=== PATIENT | female | born 1990 | race African-American/Black ===

== ENCOUNTER 2017-07-25 14:24 | Emergency (ER) | payer SELFPAY ==
--- NOTE | 2017-07-25 16:50 | ER Document Report ---
HPI - HPI Patient complains to provider of: Low back pain Onset: Other - 3 weeks Onset/Duration: Persistent Quality of pain: Achy Pain Level: 4 Context: Patient presents complaining of low back pain for the past 3 weeks. Patient also reports intermittent urinary frequency and dysuria. Patient states she has been taking [id number] AZO to treat her symptoms. Patient denies any fever. Patient does report occasional nausea but denies any at this time. Associated Symptoms: Nausea, Other - Low back pain, urinary frequency. denies: Fever, Vomiting Exacerbated by: Movement Relieved by: Denies Similar symptoms previously: No Recently seen / treated by doctor: No - ROS ROS below otherwise negative: Yes Systems Reviewed and Negative: Yes All other systems reviewed and negative - CONSTITUTIONAL Constitutional: DENIES: Fever - NEURO Neurology: DENIES: Weakness - RESPIRATORY Respiratory: DENIES: Trouble Breathing - GASTROINTESTINAL Gastrointestinal: REPORTS: Nausea. 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 IN LAST 30 DAYS: No COUNTRY TRAVELED TO/FROM: [place] - [facility] HEENT: Atraumatic, Normocephalic - NECK Neck: Normal Inspection, Supple - RESPIRATORY Respiratory: Breath Sounds Normal, No Respiratory Distress O2 Sat by Pulse Oximetry: 100 - CARDIOVASCULAR Cardiovascular: Regular Rate, Regular Rhythm, No Murmur - GI/ABDOMEN Gastrointestinal: Abdomen Soft, Abdomen Non-Tender, No Organomegaly - BACK Back: CVA Tenderness-Right, CVA Tenderness-Left - MUSCULOSKELETAL/EXTREMETIES Musculoskeletal/Extremeties: SANDRA, FROM - NEURO Level of Consciousness: Awake, Alert, Appropriate Motor/Sensory: No Motor Deficit - DERM Integumentary: Warm, Dry, No Rash Course - Re-evaluation Re-evalutation: 07/25/17 16:49 Patient denies any concerns about any possible sexually transmitted infection 07/25/17 17:45 Offered patient STD testing, patient declines. Patient prefers to wait for culture results. Will treat patient for musculoskeletal back pain at this time. - Vital Signs Vital signs: Temp Pulse Resp BP Pulse Ox 99.4 F 78 16 115/63 100 07/25/17 14:31 07/25/17 14:31 07/25/17 14:31 07/25/17 14:31 07/25/17 14:31 - Laboratory Laboratory results interpreted by me: 07/25/17 17:45 Labs- Entire Visit 07/25/17 15:49 Urine Color YELLOW Urine Appearance CLEAR Urine pH 6.0 Ur Specific Savery 1.008 Urine Protein NEGATIVE Urine Glucose (UA) NEGATIVE Urine Ketones NEGATIVE Urine Blood NEGATIVE Urine Nitrite NEGATIVE Urine Bilirubin NEGATIVE Urine Urobilinogen NEGATIVE Ur Leukocyte Esterase NEGATIVE Urine WBC 1-5 Ur Squamous Epith Cells MODERATE Urine Bacteria 1+ Urine Ascorbic Acid NEGATIVE Urine HCG, Qual NEGATIVE Discharge - Discharge Clinical Impression: Urinary symptom or sign Low back pain Qualifiers: Chronicity: unspecified Back pain laterality: bilateral Sciatica presence: without sciatica Qualified Code(s): M54.5 - Low back pain Condition: Stable Disposition: HOME, SELF-CARE Instructions: Low Back Pain ([facility]), Muscle Relaxers ([facility]) Additional Instructions: Return immediately for any new or worsening symptoms Followup with your primary care provider, call tomorrow to make a followup appointment Urine culture is pending, we will call if you need any different treatment Prescriptions: Cyclobenzaprine HCl [Flexeril 10 Mg Tablet] 10 mg PO TID #15 tablet Naproxen [Naprosyn 250 Nmg Tablet] 1 tab PO BID #14 tablet Forms: Return to Work Referrals: [facility] [Provider Group] - Follow up as needed
[2017-07-25 17:21] LABS: APPEARANCE,URINE CLEAR; BILIRUBIN,URINE NEGATIVE (NEGATIVE); GLUCOSE, URINE NEGATIVE (NEGATIVE); KETONES,URINE NEGATIVE (NEGATIVE); LEUKOCYTE ESTERASE,URINE NEGATIVE (NEGATIVE); NITRITE,URINE NEGATIVE (NEGATIVE); PROTEIN,URINE NEGATIVE (NEGATIVE); URINE SPECIFIC GRAVITY 1.008; UROBILINOGEN,URINE NEGATIVE mg/dL (<2.0)
[2017-07-25 17:29] LABS: BACTERIA,URINE 1+ /HPF
[2017-07-25] MEDS ORDERED: CYCLOBENZAPRINE HCL 10 MG TABLET PO ONE (17:47)
[2017-07-25] MEDS ORDERED: IBUPROFEN 800 MG TABLET PO ONE (17:47)
[2017-07-25 18:09] VITALS: BP 108/89
== END 2017-07-25 18:09 | disposition home or self-care (01) ==
LOC: ER 14:24
DX: M54.5 Low back pain (principal); R11.0 Nausea; R35.0 Frequency of micturition
CPT/HCPCS: 81001; 81025; 87086; 99283

== ENCOUNTER 2017-09-16 10:38 | Emergency (ER) | payer SELFPAY ==
[2017-09-16 11:25] LABS: APPEARANCE,URINE SLIGHTLY-CLOUDY; BILIRUBIN,URINE NEGATIVE (NEGATIVE); COLOR,URINE YELLOW; GLUCOSE, URINE NEGATIVE (NEGATIVE); KETONES,URINE NEGATIVE (NEGATIVE); LEUKOCYTE ESTERASE,URINE NEGATIVE (NEGATIVE); NITRITE,URINE NEGATIVE (NEGATIVE); PROTEIN,URINE NEGATIVE (NEGATIVE); URINE SPECIFIC GRAVITY 1.018; UROBILINOGEN,URINE NEGATIVE mg/dL (<2.0)
--- NOTE | 2017-09-16 12:12 | ER Document Report ---
ED General - General Chief Complaint: Sore Throat Stated Complaint: SORE THROAT,CRAMPING Time Seen by Provider: 09/16/17 11:15 Mode of Arrival: Ambulatory Information source: Patient Notes: 26-year-old female presents with 2 separate complaints. Patient admits to intermittent cramping which she denies any vaginal bleeding or discharge. Patient notes it feels like it.. Patient also notes that she has had a tender lymph node of 1 month duration after she was seen and treated for strep pharyngitis TRAVEL OUTSIDE OF THE [place] IN LAST 30 DAYS: No COUNTRY TRAVELED TO/FROM: [facility] - [facility] Onset: Last week Onset/Duration: Intermittent Quality of pain: Cramping Severity: Mild Pain Level: 1 Associated symptoms: Sore throat, Other Exacerbated by: Denies Relieved by: Denies Similar symptoms previously: Yes Recently seen / treated by doctor: Yes - Related Data Allergies/Adverse Reactions: No Known Allergies Allergy (Verified 09/16/17 10:42) Past Medical History - Social History Smoking Status: Never Smoker Cigarette use (# per day): No Chew tobacco use (# tins/day): No Smoking Education Provided: No Frequency of alcohol use: None Drug Abuse: None Family History: DM, Hypertension Patient has suicidal ideation: No Patient has homicidal ideation: No - Past Medical History Cardiac Medical History: Reports: Hx Hypertension - Turn Neurological Medical History: 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 Denies recent illness. EENT: Denies eye, ear, throat, or mouth pain or symptoms. Denies nasal or sinus congestion or discharge. Denies throat, tongue, or mouth swelling or difficulty swallowing. CARDIOVASCULAR: Denies chest pain. Denies palpitations or racing or irregular heart beat. Denies ankle edema. RESPIRATORY: Denies cough, cold, or chest congestion. Denies shortness of breath, difficulty breathing, or wheezing. GASTROINTESTINAL: Admits to cramping GENITOURINARY: Denies difficulty urinating, painful urination, burning, frequency, blood in urine, or discharge. FEMALE GENITOURINARY: Denies vaginal bleeding, heavy or abnormal periods, irregular periods. Denies vaginal discharge or odor. MUSCULOSKELETAL: Denies back or neck pain or stiffness. Denies joint pain or swelling. SKIN: Denies rash, lesions or sores. HEMATOLOGIC : Denies easy bruising or bleeding. LYMPHATIC: Denies swollen, enlarged glands. NEUROLOGICAL: Denies confusion or altered mental status. Denies passing out or loss of consciousness. Denies dizziness or lightheadedness. Denies headache. Denies weakness or paralysis or loss of use of either side. Denies problems with gait or speech. Denies sensory loss, numbness, or tingling. Denies seizures. PSYCHIATRIC: Denies anxiety or stress. Denies depression, suicidal ideation, or homicidal ideation. ALL OTHER SYSTEMS REVIEWED AND NEGATIVE. PHYSICAL EXAMINATION: GENERAL: Well-appearing, well-nourished and in no acute distress. HEAD: Atraumatic, normocephalic. EYES: Pupils equal round and reactive to light, extraocular movements intact, conjunctiva are normal. ENT: Nares patent, oropharynx clear without exudates. Moist mucous membranes. NECK: Normal range of motion, supple without lymphadenopathy LUNGS: Breath sounds clear to auscultation bilaterally and equal. No wheezes rales or rhonchi. HEART: Regular rate and rhythm without murmurs ABDOMEN: Soft, nontender, nondistended abdomen. No guarding, no rebound. No masses appreciated. Female : deferred Musculoskeletal: Normal range of motion, no pitting or edema. No cyanosis. NEUROLOGICAL: Cranial nerves grossly intact. Normal speech, normal gait. Normal sensory, motor exams PSYCH: Normal mood, normal affect. SKIN: Left anterior cervicular lymph node tender Dictation was performed using [employer] voice recognition software Course - Re-evaluation Re-evalutation: 09/16/17 12:12 Patient's hCG is positive 09/16/17 13:17 Serum hCG quant was ordered, he came back at 10, I am surprised that the urine hCG had been positive to be honest, I will have the patient follow-up in 48 hours for recheck of her hCG and follow-up with L department for further care After performing a Medical Screening Examination, I estimate there is LOW risk for ACUTE APPENDICITIS, BOWEL OBSTRUCTION, ACUTE CHOLECYSTITIS, PERFORATED DIVERTICULITIS, INCARCERATED HERNIA, PANCREATITIS, PELVIC INFLAMMATORY DISEASE, PERFORATED ULCER, ECTOPIC , or TUBO-OVARIAN ABSCESS, thus I consider the discharge disposition reasonable. Also, there is no evidence or peritonitis , sepsis, or toxicity. I have reevaluated this patient multiple times and no significant life threatening changes are noted. The patient and I have discussed the diagnosis and risks, and we agree with discharging home with close follow-up with the understanding that symptoms and presentations can change. We also discussed returning to the Emergency Department immediately if new or worsening symptoms occur. We have discussed the symptoms which are most concerning (e.g., bloody stool, fever, changing or worsening pain, vomiting) that necessitate immediate return. - Laboratory Laboratory results interpreted by me: 09/16/17 09/16/17 10:50 12:15 Beta HCG, Quant 10.61 H Urine HCG, Qual POSITIVE H Discharge - Discharge Clinical Impression: lymph node neck , positive serum Condition: Stable Disposition: HOME, SELF-CARE Instructions: ([facility]) Additional Instructions: Please take prenatals daily, repeat 48 hours for evaluation of your hCG Forms: Follow-Up Laboratory Testing
[2017-09-16 13:29] VITALS: BP 108/70
== END 2017-09-16 13:27 | disposition home or self-care (01) ==
LOC: ER 10:38
DX: J02.9 Acute pharyngitis, unspecified (principal); Z32.01 Encounter for pregnancy test, result positive
CPT/HCPCS: 36415; 81001; 81025; 84702; 99283

== ENCOUNTER → 2017-09-19 | Outpatient (CLI) | payer SELFPAY | LOC: LAB 13:41 | PROVIDERS: ATTEND Emergency Medicine | DX: O26.899 Other specified pregnancy related conditions, unspecified trimester (principal); R10.2 Pelvic and perineal pain; Z3A.00 Weeks of gestation of pregnancy not specified | CPT/HCPCS: 36415; 84702 ==

== ENCOUNTER 2017-09-23 23:01 | Emergency (ER) | payer SELFPAY ==
--- NOTE | 2017-09-24 00:36 | ER Document Report ---
ED Medical Screen (RME) - General Chief Complaint: Nausea/Vomiting Stated Complaint: ABDOMINAL PAIN Time Seen by Provider: 09/24/17 00:29 Notes: Patient is a 26-year-old female presents emergency department with a chief complaint of pelvic cramping, nausea and decreased appetite is been going on for 4 days. Patient states that she did have a positive and she was tested here a week ago and is followed up with the health department. She did not have a flu vaccine TRAVEL OUTSIDE OF THE [place] 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 HEAD: Normocephalic, atraumatic. EYES: Pupils equal, round, and reactive to light. Extraocular movements intact. ENT: Oral mucosa moist, tongue midline. NECK: Full range of motion. Supple. Trachea midline. LUNGS: Clear to auscultation bilaterally, no wheezes, rales, or rhonchi. No respiratory distress. HEART: Regular rate and rhythm. No murmurs, gallops, or rubs. EXTREMITIES: Moves all 4 extremities spontaneously. No edema, radial and dorsalis pedis pulses 2/4 bilaterally. No cyanosis. NEUROLOGICAL: Alert and oriented x4. Normal speech. PSYCH: Normal affect, normal mood. SKIN: Warm, dry, normal turgor. No rashes or lesions noted. Course - Vital Signs Vital signs: Temp Pulse Resp BP Pulse Ox 98.5 F 93 18 110/70 98 09/23/17 23:05 09/23/17 23:09/23/17 23:05 09/23/17 23:05 09/23/17 23:05
[2017-09-24 01:06] LABS: ABSOLUTE LYMPHOCYTES (AUTO) 2.1 10^3/uL (0.5-4.7); ABSOLUTE MONOCYTES (AUTO) 0.5 10^3/uL (0.1-1.4); ABSOLUTE NEUT (AUTO) 4.2 10^3/uL (1.7-8.2); BASOPHILS % (AUTO) 0.3 % (0-2); EOSINOPHILS % (AUTO) 0.2 % (0-6); HEMATOCRIT 35.9 % (36.0-47.0); HEMOGLOBIN 11.6 g/dL (12.0-15.5); LYMPHOCYTES % (AUTO) 30.8 % (13-45); MEAN CORPUSCULAR HGB CONC 32.3 g/dL (32.0-36.0); MEAN CORPUSCULAR VOLUME 80 fl (80-97); MONOCYTES % (AUTO) 7.3 % (3-13); PLATELET COUNT 272 10^3/uL (150-450); RED BLOOD COUNT 4.46 10^6/uL (3.72-5.28); RED CELL DISTRIBUTION WIDTH 15.5 % (11.5-14.0); SEGMENTED NEUTROPHILS % (AUTO) 61.4 % (42-78); TOTAL CELLS COUNTED % (AUTO) 100 %; WHITE BLOOD COUNT 6.8 10^3/uL (4.0-10.5)
[2017-09-24 01:13] LABS: ALANINE AMINOTRANSFERASE 23 U/L (9-52); ALBUMIN 4.8 g/dL (3.5-5.0); ALKALINE PHOSPHATASE 61 U/L (38-126); ANION GAP 10 (5-19); ASPARTATE AMINO TRANSFERASE 16 U/L (14-36); BILIRUBIN,DIRECT 0.4 mg/dL (0.0-0.4); BILIRUBIN,TOTAL 0.5 mg/dL (0.2-1.3); BLOOD UREA NITROGEN 7 mg/dL (7-20); CALCIUM 10.1 mg/dL (8.4-10.2); CARBON DIOXIDE 25 mmol/L (22-30); CHLORIDE 106 mmol/L (98-107); GLUCOSE 102 mg/dL (75-110); LIPASE 49.3 U/L (23-300); POTASSIUM 4.1 mmol/L (3.6-5.0); SODIUM 141.3 mmol/L (137-145)
[2017-09-24 01:18] LABS: A TYPE INFLUENZA AG NEGATIVE (NEGATIVE); B INFLUENZA AG NEGATIVE (NEGATIVE)
--- NOTE | 2017-09-24 01:48 | RADIOLOGY REPORT (SQ) ---
EXAM DESCRIPTION: U/S OB TRANSVAG W/DOPPLER COMPLETED DATE/TIME: 09/24/2017 1:13 am REASON FOR STUDY: pelvic cramping COMPARISON: None. TECHNIQUE: Transvaginal static and realtime grayscale images acquired of the pelvis. Additional mu cted spectral and color Doppler images recorded. All images stored on PACs. BHCG: Pending. LIMITATIONS: None. FINDINGS: UTERUS: The uterus measures 7.0 x 4.0 x 5.4 cm. The endometrium is measuring 2.0 mm in do uble wall thickness. No visualized intrauterine . The cervix measures 2.8 cm in length. RIGHT ADNEXA: The right ovary measures 3.8 x 2.0 x 3.0 cm. Flow by Doppler was shown to the right ov tez. No adnexal masses. LEFT ADNEXA: The left ovary measures 2.4 x 3.1 x 2.0 cm. Flow by Doppler was shown to the left ovary . No adnexal masses. FREE FLUID: Small amount of free fluid within the posterior cul-de-sac. IMPRESSION: NO VISUALIZED INTRA- OR EXTRAUTERINE . ECTOPIC CANNOT BE EXCLUDED. FOLLOW-UP ULTRASOUND AND SERIAL BHCG LEVELS STRONGLY RECOMMENDED TO ACCURATELY ASSESS STATU S. TECHNICAL DOCUMENTATION: JOB ID: [id number] [employer]- All Rights Reserved
[2017-09-24 02:25] LABS: APPEARANCE,URINE CLEAR; BILIRUBIN,URINE NEGATIVE (NEGATIVE); COLOR,URINE YELLOW; GLUCOSE, URINE NEGATIVE (NEGATIVE); KETONES,URINE 20 mg/dL (NEGATIVE); LEUKOCYTE ESTERASE,URINE NEGATIVE (NEGATIVE); NITRITE,URINE NEGATIVE (NEGATIVE); PROTEIN,URINE NEGATIVE (NEGATIVE); URINE SPECIFIC GRAVITY 1.026; UROBILINOGEN,URINE NEGATIVE mg/dL (<2.0)
[2017-09-24] MEDS ORDERED: NORMAL SALINE 1000 ML 1,000 ML IV ONE (02:39)
[2017-09-24] MEDS ORDERED: METOCLOPRAMIDE HCL INJ/PF 10 MG/2 ML SDV IV ONE (02:40)
--- NOTE | 2017-09-24 04:05 | ER Document Report ---
ED General - General Chief Complaint: Nausea/Vomiting Stated Complaint: ABDOMINAL PAIN Time Seen by Provider: 09/24/17 00:29 Notes: Patient is a 26-year-old female who is in a first trimester . Last menstrual period was in June. She complains of having some nausea and vomiting and some abdominal cramping as well as some diarrhea. She says that she had hyperemesis gravidarum with her first and occasionally had to be admitted because of dehydration. Patient does not remember what nausea medication work for her that time. She has been taking vitamins. She has not yet had an ultrasound. She denies any fevers or infections. She denies any blood or emesis. No blood in her stool. No vaginal bleeding. No other complaints at this time. TRAVEL OUTSIDE OF THE [place] 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 EENT: Denies eye, ear, throat, or mouth pain or symptoms. Denies nasal or sinus congestion. CARDIOVASCULAR: Denies chest pain. RESPIRATORY: Denies cough, cold, or chest congestion. Denies shortness of breath, difficulty breathing, or wheezing. GASTROINTESTINAL: Some lower abdominal pain. Vomiting. GENITOURINARY: Denies difficulty urinating, painful urination, burning, frequency, or blood in urine. FEMALE GENITOURINARY: Denies vaginal bleeding, abnormal or irregular periods. LMP: . MUSCULOSKELETAL: Denies neck or back pain or joint pain or swelling. SKIN: Denies rash or skin lesions. NEUROLOGICAL: Denies altered mental status or loss of consciousness. Denies weakness or paralysis or loss of use of either side. Denies problems with gait or speech. Denies sensory or motor loss. ALL OTHER SYSTEMS REVIEWED AND NEGATIVE. Physical Exam - Vital signs Vitals: Temp Pulse Resp BP Pulse Ox 98.5 F 93 18 110/70 98 09/23/17 23:05 09/23/17 23:05 09/23/17 23:05 09/23/17 23:05 09/23/17 23:05 - Notes Notes: General Appearance: Well nourished, alert, cooperative, no acute distress, no obvious discomfort. Well-appearing. Vitals: reviewed, See vital signs table. Head: no swelling or tenderness to the head Eyes: PERRL, EOMI, Conjuctiva clear Mouth: No decreasd moisture Lungs: No wheezing, No rales, No rhonci, No accessory muscle use, good air exchange bilaterally. Heart: Normal rate, Regular rythm, No murmur, no rub Abdomen: Normal BS, soft, No rigidity, very mild lower abdominal tenderness to palpation, No guarding, no rebound, Extremities: strength 5/5 in all extremities, good pulses in all extremities, no swelling or tenderness in the extremities, no edema. Skin: warm, dry, appropriate color, no rash Neuro: speech clear, oriented x 3, normal affect, responds appropriately to questions. Course - Re-evaluation Re-evalutation: 09/24/17 07:33 Patient is well-appearing. She says her symptoms have resolved with Reglan. She does not have any pain in the longer feels nauseous. She looks well. Feel she is safe to be discharged home. I informed her that we cannot yet see an IUP on ultrasound. I informed her that her hCG level is still low and that this is probably related to her being early . I informed her that she needs to return to ER or follow-up with OB doctor in 3 days for repeat hCG level and potential ultrasound if she still having any pain. Patient encouraged to return to I me that she has severe pain, vaginal bleeding, intractable vomiting, fevers, or feels unwell. Patient is already taking vitamins. Patient agrees with plan will be discharged home. Dictation of this chart was performed using voice recognition software; therefore, there may be some unintended grammatical errors. - Vital Signs Vital signs: Temp Pulse Resp BP Pulse Ox 98.5 F 98 18 116/74 100 09/23/17 23:05 09/24/17 04:43 09/24/17 04:43 09/24/17 04:43 09/24/17 04:43 - Laboratory Result Diagrams: 09/24/17 00:41 09/24/17 00:41 Laboratory results interpreted by me: 09/24/17 09/24/17 09/24/17 00:41 00:41 00:41 Hgb 11.6 L Hct 35.9 L MCH 26.0 L RDW 15.5 H Serum HCG, Qual POSITIVE H Beta HCG, Quant 939.75 H Urine Ketones Urine Ascorbic Acid 09/24/17 02:07 Hgb Hct MCH RDW Serum HCG, Qual Beta HCG, Quant Urine Ketones 20 H Urine Ascorbic Acid 20 H Discharge - Discharge Clinical Impression: Vomiting during Condition: Good Disposition: HOME, SELF-CARE Additional Instructions: Hyperemesis Gravidarum Hyperemesis gravidarum is the medical term for severe vomiting during . We don't know exactly why it occurs, but it's a common problem. Dehydration can occur. This reduces blood flow to the placenta, decreasing the baby's nourishment. The baby will also become dehydrated. There can be harmful changes in blood sodium, potassium, or acid balance. Our goal is to correct, and prevent, dehydration. For severe cases, we give IV fluids. Antinausea medication will be prescribed. (Don't be concerned about " defects" -- the risk to you and your baby from the hyperemesis is the biggest problem. The antinausea medication is very safe at this stage of .) Call the doctor if you have vaginal bleeding, abdominal pain, severe lightheadedness or weakness, or other alarming symptoms. Please return to the ER in 3 days for reevaluation and recheck of your hormone level if you are still having any pain your abdomen. Please return to the ER immediately if you have worsening pain, vaginal bleeding, fevers, or have further concerns. The nausea medicine may make you drowsy so please be careful when determining whether or not you will be driving after taking the medication. Prescriptions: Metoclopramide HCl [Reglan 10 mg Tablet] 1 tab PO ASDIR PRN #25 tablet PRN Reason: Forms: Parent Work Note, Return to Work Referrals: HONG MAIER MD [Primary Care Provider] - Follow up in 3-5 days
[2017-09-24 05:02] VITALS: BP 116/74
== END 2017-09-24 05:00 | disposition home or self-care (01) ==
LOC: ER 23:01
DX: O21.9 Vomiting of pregnancy, unspecified (principal); O26.91 Pregnancy related conditions, unspecified, first trimester; R10.9 Unspecified abdominal pain; R19.7 Diarrhea, unspecified
CPT/HCPCS: 99284; 96361; 96374; 36415; 84702; 83690; 84703; 85025; 80053; 81001; 87804; 76817; 93976; J2765; J7030

== ENCOUNTER 2017-09-26 13:59 | Emergency (ER) | payer SELFPAY ==
[2017-09-26 14:08] VITALS: BP 119/85
[2017-09-26] MEDS ORDERED: NORMAL SALINE 1000 ML 1,000 ML IV ONE (14:52)
[2017-09-26] MEDS ORDERED: METOCLOPRAMIDE HCL INJ/PF 10 MG/2 ML SDV IV ONE (14:52)
--- NOTE | 2017-09-26 14:57 | ER Document Report ---
ED Medical Screen (RME) - General Chief Complaint: Abdominal Cramping Stated Complaint: ABDOMINAL PAIN, VOMITING Time Seen by Provider: 09/26/17 14:51 Mode of Arrival: Ambulatory Information source: Patient Notes: Pt is a 26 year old who presents to the ER today for contiinued nausea/ vomiting abdominal cramping and some bleeding today. She was here 2 days ago and received and ultrasound that did not visualize with HCG levels of 900. She has had hyperemesis in previous . TRAVEL OUTSIDE OF THE [place] 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 Renal/ Medical History: Denies: Hx Peritoneal Dialysis - Immunizations Immunizations up to date: Yes Hx Diphtheria, Pertussis, Tetanus Vaccination: Yes Review of Systems - Review of Systems Gastrointestinal: See HPI Female Genitourinary: See HPI Physical Exam - Vital signs Vitals: Temp Pulse Resp BP Pulse Ox 98.7 F 107 H 18 119/85 99 09/26/17 14:06 09/26/17 14:06 09/26/17 14:06 09/26/17 14:06 09/26/17 14:06 - Notes Notes: General: NAD Course - Vital Signs Vital signs: Temp Pulse Resp BP Pulse Ox 98.7 F 107 H 18 119/85 99 09/26/17 14:06 09/26/17 14:06 09/26/17 14:06 09/26/17 14:06 09/26/17 14:06
[2017-09-26 15:45] LABS: ABSOLUTE LYMPHOCYTES (AUTO) 1.2 10^3/uL (0.5-4.7); ABSOLUTE MONOCYTES (AUTO) 0.4 10^3/uL (0.1-1.4); ABSOLUTE NEUT (AUTO) 3.5 10^3/uL (1.7-8.2); BASOPHILS % (AUTO) 0.5 % (0-2); EOSINOPHILS % (AUTO) 0.3 % (0-6); HEMATOCRIT 34.5 % (36.0-47.0); HEMOGLOBIN 11.2 g/dL (12.0-15.5); LYMPHOCYTES % (AUTO) 22.8 % (13-45); MEAN CORPUSCULAR HEMOGLOBIN 25.9 pg (27.0-33.4); MEAN CORPUSCULAR HGB CONC 32.4 g/dL (32.0-36.0); MEAN CORPUSCULAR VOLUME 80 fl (80-97); MONOCYTES % (AUTO) 7.8 % (3-13); PLATELET COUNT 253 10^3/uL (150-450); RED BLOOD COUNT 4.31 10^6/uL (3.72-5.28); SEGMENTED NEUTROPHILS % (AUTO) 68.6 % (42-78); TOTAL CELLS COUNTED % (AUTO) 100 %; WHITE BLOOD COUNT 5.1 10^3/uL (4.0-10.5)
--- NOTE | 2017-09-26 15:55 | ER Document Report ---
ED GI/ - General Chief Complaint: Abdominal Cramping Stated Complaint: ABDOMINAL PAIN, VOMITING Time Seen by Provider: 09/26/17 14:51 Mode of Arrival: Ambulatory Information source: Patient Notes: Pt is a 26 year old who presents to the ER today for contiinued nausea/ vomiting abdominal cramping and some bleeding today. She was here 2 days ago and received and ultrasound that did not visualize with HCG levels of 900. She has had hyperemesis in previous . TRAVEL OUTSIDE OF THE [place] 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 Renal/ Medical History: Denies: Hx Peritoneal Dialysis - Immunizations Immunizations up to date: Yes Hx Diphtheria, Pertussis, Tetanus Vaccination: Yes Review of Systems - Review of Systems Constitutional: No symptoms reported EENT: No symptoms reported Cardiovascular: No symptoms reported Respiratory: No symptoms reported Gastrointestinal: See HPI Genitourinary: No symptoms reported Female Genitourinary: See HPI Musculoskeletal: No symptoms reported Skin: No symptoms reported Hematologic/Lymphatic: No symptoms reported Neurological/Psychological: No symptoms reported Physical Exam - Vital signs Vitals: Temp Pulse Resp BP Pulse Ox 98.7 F 107 H 18 119/85 99 09/26/17 14:06 09/26/17 14:06 09/26/17 14:06 09/26/17 14:06 09/26/17 14:06 - Notes Notes: PHYSICAL EXAMINATION: GENERAL: Well-appearing and in no acute distress. HEAD: Atraumatic, normocephalic. EYES: Pupils equal round and reactive to light, extraocular movements intact, sclera anicteric, conjunctiva are normal. NECK: Normal range of motion, supple without lymphadenopathy LUNGS: CTAB and equal. No wheezes rales or rhonchi. HEART: Regular rate and rhythm without murmurs ABDOMEN: Soft, mild diffuse tenderness. No guarding, no rebound BACK: no vertebral tenderness, normal ROM GI/: no CVA tenderness EXTREMITIES: Normal range of motion, no pitting edema. No cyanosis. NEUROLOGICAL: Cranial nerves grossly intact. Normal sensory/motor exams. PSYCH: Normal mood, normal affect. SKIN: Warm, Dry, normal turgor, no rashes or lesions noted Course - Re-evaluation Re-evalutation: 09/26/17 15:53 Lab work unremarkable today, but patient requests to leave before hCG quant is back. Patient did receive IV fluids and IV Reglan and has not vomited here in the emergency department. I will send her home with a prescription for directly just. - Vital Signs Vital signs: Temp Pulse Resp BP Pulse Ox 98.7 F 107 H 18 119/85 99 09/26/17 14:06 09/26/17 14:06 09/26/17 14:06 09/26/17 14:06 09/26/17 14:06 - Laboratory Result Diagrams: 09/26/17 15:00 Laboratory results interpreted by me: 09/26/17 15:00 Hgb 11.2 L Hct 34.5 L MCH 25.9 L RDW 15.0 H Discharge - Discharge Clinical Impression: Vomiting during Condition: Stable Disposition: HOME, SELF-CARE Instructions: Antinausea Medication ([facility]), Intravenous (IV) Fluids ([facility]) Additional Instructions: Return immediately for any new or worsening symptoms. Follow up with primary care provider, call tomorrow to make followup appointment. Prescriptions: Doxylamine Succinate/Vit B6 [Mami Abarca 10-10 mg Tablet] 1 each PO Q8 PRN #30 tablet.dr MCDANIEL Reason: Referrals: [facility] [Provider Group] - Follow up as needed
== END 2017-09-26 15:59 | disposition home or self-care (01) ==
LOC: ER 13:59
DX: O21.9 Vomiting of pregnancy, unspecified (principal); R10.9 Unspecified abdominal pain
CPT/HCPCS: 99283; 96361; 96374; 36415; 84702; 85025; J2765; J7030

== ENCOUNTER 2017-09-29 22:42 | Emergency (ER) | payer SELFPAY | END 2017-09-30 00:14 | disposition left against medical advice (07) | LOC: ER 22:42 | DX: Z53.21 Procedure and treatment not carried out due to patient leaving prior to being seen by health care provider (principal) ==

== ENCOUNTER 2017-10-02 14:05 | Emergency (ER) | payer SELFPAY ==
--- NOTE | 2017-10-02 14:47 | ER Document Report ---
ED Medical Screen (RME) - General Chief Complaint: Vomiting Stated Complaint: ABDOMINAL PAIN,VOMITING,DIARRHEA Time Seen by Provider: 10/02/17 14:45 Mode of Arrival: Ambulatory Information source: Patient TRAVEL OUTSIDE OF THE [place] 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
[2017-10-02 15:32] LABS: ABSOLUTE LYMPHOCYTES (AUTO) 1.3 10^3/uL (0.5-4.7); ABSOLUTE MONOCYTES (AUTO) 0.5 10^3/uL (0.1-1.4); ABSOLUTE NEUT (AUTO) 2.9 10^3/uL (1.7-8.2); BASOPHILS % (AUTO) 0.5 % (0-2); EOSINOPHILS % (AUTO) 0.6 % (0-6); HEMATOCRIT 34.1 % (36.0-47.0); HEMOGLOBIN 10.9 g/dL (12.0-15.5); LYMPHOCYTES % (AUTO) 27.3 % (13-45); MEAN CORPUSCULAR VOLUME 81 fl (80-97); MONOCYTES % (AUTO) 10.6 % (3-13); PLATELET COUNT 225 10^3/uL (150-450); RED BLOOD COUNT 4.19 10^6/uL (3.72-5.28); RED CELL DISTRIBUTION WIDTH 14.9 % (11.5-14.0); TOTAL CELLS COUNTED % (AUTO) 100 %; WHITE BLOOD COUNT 4.8 10^3/uL (4.0-10.5)
--- NOTE | 2017-10-02 15:47 | RADIOLOGY REPORT (SQ) ---
EXAM DESCRIPTION: U/S OB TRANSVAG W/DOPPLER COMPLETED DATE/TIME: 10/02/2017 3:37 pm REASON FOR STUDY: ; spotting COMPARISON: 09/24/2017. TECHNIQUE: Transvaginal static and realtime grayscale images acquired of the pelvis. Additional mu cted spectral and color Doppler images recorded. All images stored on PACs. BHCG: Pending. Was 2,475 on 09/26/2017. LIMITATIONS: None. FINDINGS: UTERUS: No masses. No anomalies. GESTATIONAL SAC: Fluid collection endometrial cavity, potentially an early gestational sac. YOLK SAC: No. POLE: No. RIGHT ADNEXA: Normal ovary with normal vascular flow. No adnexal free fluid. No adnexal masses. LEFT ADNEXA: Normal ovary with normal vascular flow. No adnexal free fluid. No adnexal masses. FREE FLUID: None. OTHER: No other significant finding. IMPRESSION: POSSIBLE EARLY INTRAUTERINE . BHCG LEVEL APPROPRIATE FOR ENDOMETRIAL FINDINGS. CONSIDER F/U BHCG AND/OR ULTRASOUND FOR VERIFICATION AND TO EXCLUDE ECTOPIC . Trimester of : First - 0 to 13 weeks. TECHNICAL DOCUMENTATION: JOB ID: [id number] [employer]- All Rights Reserved
[2017-10-02 15:48] LABS: ALANINE AMINOTRANSFERASE 12 U/L (9-52); ALBUMIN 4.5 g/dL (3.5-5.0); ALKALINE PHOSPHATASE 48 U/L (38-126); ANION GAP 10 (5-19); ASPARTATE AMINO TRANSFERASE 15 U/L (14-36); BILIRUBIN,DIRECT 0.1 mg/dL (0.0-0.4); BILIRUBIN,TOTAL 0.3 mg/dL (0.2-1.3); BLOOD UREA NITROGEN 5 mg/dL (7-20); CALCIUM 9.8 mg/dL (8.4-10.2); CARBON DIOXIDE 26 mmol/L (22-30); CHLORIDE 104 mmol/L (98-107); GLUCOSE 87 mg/dL (75-110); POTASSIUM 4.5 mmol/L (3.6-5.0); SODIUM 139.8 mmol/L (137-145)
[2017-10-02 17:32] LABS: APPEARANCE,URINE SLIGHTLY-CLOUDY; BILIRUBIN,URINE NEGATIVE (NEGATIVE); COLOR,URINE YELLOW; GLUCOSE, URINE NEGATIVE (NEGATIVE); KETONES,URINE TRACE mg/dL (NEGATIVE); LEUKOCYTE ESTERASE,URINE NEGATIVE (NEGATIVE); NITRITE,URINE NEGATIVE (NEGATIVE); PROTEIN,URINE NEGATIVE (NEGATIVE); URINE SPECIFIC GRAVITY 1.014; UROBILINOGEN,URINE NEGATIVE mg/dL (<2.0)
--- NOTE | 2017-10-02 17:38 | ER Document Report ---
ED General - General Chief Complaint: Vomiting Stated Complaint: ABDOMINAL PAIN,VOMITING,DIARRHEA Time Seen by Provider: 10/02/17 14:45 Mode of Arrival: Ambulatory TRAVEL OUTSIDE OF THE [place] IN LAST 30 DAYS: No - HPI Notes: 26 yr old 5 week female presents today for follow-up of her hCG with a transvaginal ultrasound due to a history of vomiting since the onset of her . Patient reports she has a history of hyperemesis gravidarum. Denies any vaginal bleeding, pelvic pain. Patient has not vomited at all today. Patient denies any abdominal pain, pelvic pain, vaginal pain. Patient has been drinking ensure because she thought that would help with hydration. Denies any chest pain, shortness of breath, nausea, vomiting, diarrhea. Eating and drinking without issues. Patient states she [facility]. Denies any fevers or chills. 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 Renal/ Medical History: Denies: Hx Peritoneal Dialysis - Immunizations Immunizations up to date: Yes Hx Diphtheria, Pertussis, Tetanus Vaccination: Yes Review of Systems - Review of Systems Constitutional: No symptoms reported EENT: No symptoms reported Cardiovascular: No symptoms reported Respiratory: No symptoms reported Gastrointestinal: See HPI Genitourinary: No symptoms reported Female Genitourinary: See HPI Musculoskeletal: No symptoms reported Skin: No symptoms reported Hematologic/Lymphatic: No symptoms reported Neurological/Psychological: No symptoms reported Physical Exam - Vital signs Vitals: Temp Pulse Resp BP Pulse Ox 98.9 F 68 16 114/62 100 10/02/17 14:31 10/02/17 14:31 10/02/17 14:31 10/02/17 14:31 10/02/17 14:31 - Notes Notes: PHYSICAL EXAMINATION: GENERAL: Well-appearing, well-nourished and in no acute distress. HEAD: Atraumatic, normocephalic. EYES: Pupils equal round and reactive to light, extraocular movements intact, conjunctiva are normal. ENT: Nares patent, oropharynx clear without exudates. Moist mucous membranes. NECK: Normal range of motion, supple without lymphadenopathy LUNGS: Breath sounds clear to auscultation bilaterally and equal. No wheezes rales or rhonchi. HEART: Regular rate and rhythm without murmurs ABDOMEN: Soft, nontender, nondistended abdomen. No guarding, no rebound. No masses appreciated. Female : deferred Musculoskeletal: Normal range of motion, no pitting or edema. No cyanosis. NEUROLOGICAL: Cranial nerves grossly intact. Normal speech, normal gait. Normal sensory, motor exams PSYCH: Normal mood, normal affect. SKIN: Warm, Dry, normal turgor, no rashes or lesions noted. Course - Re-evaluation Re-evalutation: Discussed results of laboratory findings and ultrasound patient. Discussed with her that her quantitative hCG is elevated to 25,355. She does have an intrauterine is seen on transvaginal ultrasound. Patient has not had any vomiting today. Came back for reevaluation per instructions from her previous ER visit. Patient has been drinking Gatorade all day, stating that has been helping. Patient states physically she is drinking Ensure to "get something in her stomach" of drinking Pedialyte. Patient states that she does not feel nauseous. As taking p.o. contracts. Advised patient that she would benefit from IV fluids, patient refused stating she has been "had too many needles this last week with IVs". Discussed importance of hydration. Patient verbalized understanding of instructions. Advised to follow-up with OBGYN within 3 days. Return to the emergency room if symptoms become worse. - Vital Signs Vital signs: Temp Pulse Resp BP Pulse Ox 98.6 F 78 20 106/56 L 100 10/02/17 18:42 10/02/17 18:42 10/02/17 18:42 10/02/17 18:42 10/02/17 18:42 - Laboratory Result Diagrams: 10/02/17 14:55 10/02/17 14:55 Laboratory results interpreted by me: 10/02/17 10/02/17 10/02/17 14:55 14:55 17:14 Hgb 10.9 L Hct 34.1 L MCH 26.0 L RDW 14.9 H BUN 5 L Beta HCG, Quant 38163.00 H Urine Ketones TRACE H Discharge - Discharge Clinical Impression: Nausea/vomiting in Condition: Good Disposition: HOME, SELF-CARE Prescriptions: Pyridoxine HCl (Vitamin B6) [Vitamin B-6] 75 mg PO DAILY #30 tablet Referrals: HONG MAIER MD [Primary Care Provider] - Follow up in 3-5 days SATYA HAUSER MD [[facility]] - Follow up in 3-5 days
[2017-10-02] MEDS ORDERED: NORMAL SALINE 1000 ML 1,000 ML IV ONE (18:28)
[2017-10-02 18:44] VITALS: BP 106/56
== END 2017-10-02 18:45 | disposition home or self-care (01) ==
LOC: ER 14:05
DX: O21.9 Vomiting of pregnancy, unspecified (principal); Z3A.01 Less than 8 weeks gestation of pregnancy
CPT/HCPCS: 36415; 76817; 80053; 81001; 84702; 85025; 86900; 86901; 93976; 99284

== ENCOUNTER 2017-10-13 20:08 | Emergency (ER) | payer SELFPAY ==
[2017-10-13] MEDS ORDERED: NORMAL SALINE 1000 ML 1,000 ML IV PRN (20:29)
[2017-10-13] MEDS ORDERED: METOCLOPRAMIDE HCL INJ/PF 10 MG/2 ML SDV IV ONE (20:48)
[2017-10-13] MEDS ORDERED: DIPHENHYDRAMINE HCL 50 MG/ML VIAL IV ONE (20:48)
[2017-10-13 21:09] LABS: ABSOLUTE LYMPHOCYTES (AUTO) 1.7 10^3/uL (0.5-4.7); ABSOLUTE MONOCYTES (AUTO) 0.6 10^3/uL (0.1-1.4); ABSOLUTE NEUT (AUTO) 5.1 10^3/uL (1.7-8.2); BASOPHILS % (AUTO) 0.3 % (0-2); EOSINOPHILS % (AUTO) 0.3 % (0-6); HEMATOCRIT 37.2 % (36.0-47.0); HEMOGLOBIN 12.2 g/dL (12.0-15.5); LYMPHOCYTES % (AUTO) 22.8 % (13-45); MEAN CORPUSCULAR HEMOGLOBIN 26.2 pg (27.0-33.4); MEAN CORPUSCULAR HGB CONC 32.8 g/dL (32.0-36.0); MEAN CORPUSCULAR VOLUME 80 fl (80-97); MONOCYTES % (AUTO) 8.4 % (3-13); PLATELET COUNT 252 10^3/uL (150-450); RED BLOOD COUNT 4.65 10^6/uL (3.72-5.28); RED CELL DISTRIBUTION WIDTH 14.7 % (11.5-14.0); SEGMENTED NEUTROPHILS % (AUTO) 68.2 % (42-78); TOTAL CELLS COUNTED % (AUTO) 100 %; WHITE BLOOD COUNT 7.5 10^3/uL (4.0-10.5)
[2017-10-13 21:11] LABS: APPEARANCE,URINE SLIGHTLY-CLOUDY; BILIRUBIN,URINE NEGATIVE (NEGATIVE); COLOR,URINE YELLOW; GLUCOSE, URINE NEGATIVE (NEGATIVE); KETONES,URINE NEGATIVE (NEGATIVE); LEUKOCYTE ESTERASE,URINE NEGATIVE (NEGATIVE); NITRITE,URINE NEGATIVE (NEGATIVE); PROTEIN,URINE NEGATIVE (NEGATIVE); URINE SPECIFIC GRAVITY 1.018; UROBILINOGEN,URINE NEGATIVE mg/dL (<2.0)
[2017-10-13 21:23] LABS: ALBUMIN 4.7 g/dL (3.5-5.0); CHLORIDE 100 mmol/L (98-107); GLUCOSE 96 mg/dL (75-110); POTASSIUM 4.3 mmol/L (3.6-5.0); SODIUM 136.6 mmol/L (137-145); TOTAL PROTEIN 7.5 g/dL (6.3-8.2)
[2017-10-13 21:24] LABS: ALANINE AMINOTRANSFERASE 18 U/L (9-52); ALKALINE PHOSPHATASE 57 U/L (38-126); ANION GAP 13 (5-19); ASPARTATE AMINO TRANSFERASE 18 U/L (14-36); BILIRUBIN,DIRECT 0.1 mg/dL (0.0-0.4); BILIRUBIN,TOTAL 0.2 mg/dL (0.2-1.3); BLOOD UREA NITROGEN 6 mg/dL (7-20); CALCIUM 10.2 mg/dL (8.4-10.2); CARBON DIOXIDE 24 mmol/L (22-30); LIPASE 60.8 U/L (23-300)
--- NOTE | 2017-10-14 00:37 | ER Document Report ---
ED General - General Chief Complaint: OB Problem (<20wks) Stated Complaint: VOMITING Time Seen by Provider: 10/13/17 20:28 TRAVEL OUTSIDE OF THE [place] IN LAST 30 DAYS: No - HPI Patient complains to provider of: Nausea vomiting Notes: Patient coming in for nausea vomiting . Patient states that she is a A1. Patient states on the previous pregnancies she had been in the multiple times for hyperemesis gravidarum. Patient states continues to vomit despite using Reglan Phenergan at home. Patient otherwise denies any abdominal pain denies any abdominal bleeding. Patient is lying on her left side upon my evaluation patient is going to be in any kind of distress upon my evaluation. 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 Renal/ Medical History: Denies: Hx Peritoneal Dialysis - Immunizations Immunizations up to date: Yes Hx Diphtheria, Pertussis, Tetanus Vaccination: Yes Review of Systems - Review of Systems Constitutional: No symptoms reported EENT: No symptoms reported Cardiovascular: No symptoms reported Respiratory: No symptoms reported Gastrointestinal: Nausea, Vomiting Genitourinary: No symptoms reported Female Genitourinary: No symptoms reported Musculoskeletal: No symptoms reported Skin: No symptoms reported Hematologic/Lymphatic: No symptoms reported Neurological/Psychological: No symptoms reported -: Yes All other systems reviewed and negative Physical Exam - Vital signs Vitals: Temp Pulse Resp BP Pulse Ox 99.2 F 92 16 105/80 100 10/13/17 20:20 10/13/17 20:20 10/13/17 20:20 10/13/17 20:20 10/13/17 20:20 Interpretation: Normal - General General appearance: Appears well, Alert - HEENT Head: Normocephalic, Atraumatic Eyes: Normal Pupils: PERRL Mucous membranes: Normal Neck: Normal - Respiratory Respiratory status: No respiratory distress Chest status: Nontender Breath sounds: Normal Chest palpation: Normal - Cardiovascular Rhythm: Regular Heart sounds: Normal auscultation Murmur: No - Abdominal Inspection: Normal Distension: No distension Bowel sounds: Normal Tenderness: Nontender Organomegaly: No organomegaly - Back Back: Normal, Nontender - Extremities General upper extremity: Normal inspection, Nontender, Normal color, Normal ROM , Normal temperature General lower extremity: Normal inspection, Nontender, Normal color, Normal ROM , Normal temperature, Normal weight bearing. No: Mitra's sign - Neurological Neuro grossly intact: Yes Cognition: Normal Orientation: AAOx4 [place] Coma Scale Eye Opening: Spontaneous K[place] Coma Scale Verbal: Oriented Krys Coma Scale Motor: Obeys Commands [place] Coma Scale Total: 15 Speech: Normal Motor strength normal: LUE, RUE, LLE, RLE Sensory: Normal - Psychological Associated symptoms: Normal affect, Normal mood - Skin Skin Temperature: Warm Skin Moisture: Dry Skin Color: Normal Course - Re-evaluation Re-evalutation: 10/14/17 01:57 The patient presents with nausea vomiting without signs of peritonitis or other life-threatening or serious etiology. The patient appears stable for discharge and has been instructed to return immediately if the symptoms worsen in any way , or in 8-12hr if not improved for re-evaluation. The patient has been instructed to return if the symptoms worsen or change in any way. Patient urinalysis not show any signs of ketosis patient does not look to be in a starvation state patient not had any vomiting loss here in ER. Patient will be discharged home. - Vital Signs Vital signs: Temp Pulse Resp BP Pulse Ox 99.3 F 85 14 97/49 L 100 10/13/17 23:34 10/13/17 23:34 10/13/17 23:34 10/13/17 23:34 10/13/17 23:34 - Laboratory Result Diagrams: 10/13/17 20:53 10/13/17 20:53 Laboratory results interpreted by me: 10/13/17 10/13/17 20:53 20:53 MCH 26.2 L RDW 14.7 H Sodium 136.6 L BUN 6 L Beta HCG, Quant 324662.00 H Discharge - Discharge Clinical Impression: Nausea/vomiting in Condition: Good Disposition: HOME, SELF-CARE Instructions: Vomiting ([facility]), (OM) Additional Instructions: For nausea and vomiting during I recomment: Start with 10-12.5 mg of pyridoxine (vitamin B6) three times a day for 2 days. If not fully effective, Increase to 12.5 mg of pyridoxine four times a day for 2 days. If not fully effective, Increase to 25 mg of pyridoxine three times a day for 2 days. If not fully effective, Continue 25 mg pyridoxine 3 times a day, and add 12.5 mg of doxylamine before bedtime each day for 2 days. If not fully effective, Continue 25 mg pyridoxine 3 times a day, and take 12.5 mg of doxylamine twice a day. If not fully effective, Continue 25 mg pyridoxine 3 times a day, and take 12.5 mg of doxylamine three times a day. If not fully effective, Continue 25 mg pyridoxine 3 times a day, and 12.5 mg of doxylamine 3 times a day , while adding Emetrol, one to two tablespoons (15-30 cc) taken once or twice a day as needed. (Emetrol is an [id number] mixture of sugar syrups and phosphoric acid [phosphorylated carbohydrate solution]) that acts by soothing the actual wall of the gastrointestinal tract). If not fully effective, Consult with your doctor. 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 Return to ER symptoms worsen. Take medications as prescribed. Prescriptions: Promethazine HCl [Phenergan 25 mg Supp.rect] 1 supp MS Q6H #20 supp.rect Referrals: MENDEL LITTLE MD [Primary Care Provider] - Follow up as needed
[2017-10-14 00:51] VITALS: BP 102/89
== END 2017-10-14 00:58 | disposition home or self-care (01) ==
LOC: ER 20:08
DX: O21.9 Vomiting of pregnancy, unspecified (principal)
CPT/HCPCS: 99284; 96361; 96374; 96375; 36415; 84702; 83690; 85025; 80053; 81001; J1200; J2765; J7030

== ENCOUNTER 2017-10-26 17:12 | Observation (INO) | payer MEDICAID ==
[2017-10-26] MEDS ORDERED: DEXTROSE 5%-LACTATED RINGERS 500 ML IV ONE (17:45)
[2017-10-26] MEDS ORDERED: METOCLOPRAMIDE HCL INJ/PF 10 MG/2 ML SDV IV PRN (18:55)
[2017-10-26] MEDS ORDERED: ONDANSETRON HCL INJ/PF 4 MG/2 ML SDV IV PRN (18:56)
[2017-10-26] MEDS ORDERED: BISACODYL 10 MG SUPP.RECT PR ONE (19:00)
[2017-10-26] MEDS: PROMETHAZINE HCL INJ 25 MG/1 ML VIAL IV PRN (19:40)
[2017-10-26] MEDS ORDERED: GLUCAGON,HUMAN RECOMB 1 MG INJ SUBCUT PRN (19:41)
[2017-10-26] MEDS: DEXTROSE 5%-LACTATED RINGERS 1,000 ML IV PRN (19:41)
[2017-10-26] MEDS ORDERED: DEXTROSE 50%-WATER 25 GM/50 ML DISP.SYRIN IV PRN ×2 (19:41)
[2017-10-26] MEDS ORDERED: DEXTROSE 40% GEL 15 GM TUBE PO PRN ×2 (19:41)
[2017-10-27] MEDS: DEXTROSE 5%-LACTATED RINGERS 1,000 ML IV PRN ×3 (00:25→16:40)
[2017-10-27] MEDS: PROMETHAZINE HCL INJ 25 MG/1 ML VIAL IV PRN ×2 (06:47→17:52)
[2017-10-27] MEDS ORDERED: BISACODYL 10 MG SUPP.RECT PR ONE ×2 (07:00→10:00)
[2017-10-27] MEDS ORDERED: ONDANSETRON HCL INJ/PF 4 MG/2 ML SDV IV PRN (10:00)
[2017-10-27] MEDS ORDERED: SENNOSIDES/DOCUSATE 8.6-50 MG 1 EACH TABLET PO ONE (10:00)
[2017-10-27] MEDS: DOCUSATE SODIUM 100 MG CAPSULE PO SCH (17:52)
[2017-10-27] MEDS ORDERED: NA PHOS,M-B/NA PHOS,DI-BA (ADULT) 133 ML ENEMA PR ONE (20:18)
--- NOTE | 2017-10-27 20:18 | PDOC PROGRESS REPORT ---
Subjective Progress Note for:: 10/27/17 Subjective:: nausea, constipation. reports not stooled in 1 week. also not eating well this week. Today attempt to advance to bland diet with emesis. Denies VB/LOF Reason For Visit: HYPEREMESIS Physical Exam - Physical Exam Vital Signs: Temp Pulse Resp BP Pulse Ox 98.8 F 76 14 108/62 100 10/27/17 15:00 10/27/17 15:00 10/27/17 15:00 10/27/17 15:00 10/27/17 15:00 Intake & Output 10/26/17 10/27/17 10/28/17 06:59 06:59 06:59 Intake Total 0 Balance 0 Weight 51.7 kg General appearance: PRESENT: no acute distress, well-developed, well-nourished Head exam: PRESENT: atraumatic, normocephalic Mouth exam: ABSENT: dry mucosa Respiratory exam: PRESENT: clear to auscultation yi, symmetrical, unlabored. ABSENT: wheezes Cardiovascular exam: PRESENT: RRR. ABSENT: diastolic murmur, rubs, systolic murmur GI/Abdominal exam: PRESENT: normal bowel sounds, soft. ABSENT: distended, guarding, mass, organolmegaly, rebound, tenderness Rectal exam: PRESENT: deferred Extremities exam: PRESENT: full ROM. ABSENT: calf tenderness, clubbing, pedal edema Neurological exam: PRESENT: alert, awake, oriented to person, oriented to place , oriented to time, oriented to situation, CN II-XII grossly intact. ABSENT: motor sensory deficit Psychiatric exam: PRESENT: appropriate affect, normal mood. ABSENT: homicidal ideation, suicidal ideation Skin exam: PRESENT: dry, intact, warm. ABSENT: cyanosis, rash Assessment & Plan - Diagnosis (1) Hyperemesis gravidarum Is this a current diagnosis for this admission?: Yes Plan: Pt with emesis when advance to bland diet. Will decrease to clears. COnt with antiemetics. Will give banana bag. Consider advance diet if tolerate clears in am. (2) Constipation Qualifiers: Constipation type: other constipation type Qualified Code(s): K59.09 - Other constipation Is this a current diagnosis for this admission?: Yes Plan: likely due to decreased intake and dehydration. Cont COlace BID. No relief with supp - pt now declining more supp. Reviewed next option is to try fleets enema. If no relief (pt reports cramping and feeling need to stool) then may consider Mag citrate. - Time Time Spent with patient: 15-24 minutes Medications reviewed and adjusted accordingly: Yes Anticipated discharge: Home Within: within 36 hours - Inpatient Certification Based on my medical assessment, after consideration of the patient's comorbidities, presenting symptoms, or acuity I expect that the services needed warrant INPATIENT care.: Yes I certify that my determination is in accordance with my understanding of Medicare's requirements for reasonable and necessary INPATIENT services [42 CFR 412.3e].: Yes Medical Necessity: Failure to Improve With Outpatient Therapy, Need For IV Fluids Post Hospital Care: D/C Regulatory Affairs Associate Documentation
[2017-10-27] MEDS: NORMAL SALINE 1000 ML 1,000 ML with THIAMINE HCL 100 MG, MVI, ADULT NO.1 WITH VIT K 10 ... IV SCH ×4 (21:59)
[2017-10-28] MEDS: DEXTROSE 5%-LACTATED RINGERS 1,000 ML IV PRN ×2 (05:58→19:56)
[2017-10-28 07:22] LABS: ABSOLUTE MONOCYTES (AUTO) 0.4 10^3/uL (0.1-1.4); ABSOLUTE NEUT (AUTO) 3.5 10^3/uL (1.7-8.2); BASOPHILS % (AUTO) 0.4 % (0-2); EOSINOPHILS % (AUTO) 0.5 % (0-6); HEMATOCRIT 29.7 % (36.0-47.0); HEMOGLOBIN 9.8 g/dL (12.0-15.5); LYMPHOCYTES % (AUTO) 20.4 % (13-45); MEAN CORPUSCULAR HEMOGLOBIN 26.5 pg (27.0-33.4); MEAN CORPUSCULAR HGB CONC 33.2 g/dL (32.0-36.0); MEAN CORPUSCULAR VOLUME 80 fl (80-97); MONOCYTES % (AUTO) 8.7 % (3-13); PLATELET COUNT 173 10^3/uL (150-450); RED BLOOD COUNT 3.71 10^6/uL (3.72-5.28); TOTAL CELLS COUNTED % (AUTO) 100 %; WHITE BLOOD COUNT 5.1 10^3/uL (4.0-10.5)
[2017-10-28 07:36] LABS: ALANINE AMINOTRANSFERASE 23 U/L (9-52); ALBUMIN 3.1 g/dL (3.5-5.0); ALKALINE PHOSPHATASE 34 U/L (38-126); AMYLASE 61 U/L (30-110); ANION GAP 7 (5-19); ASPARTATE AMINO TRANSFERASE 12 U/L (14-36); BILIRUBIN,DIRECT 0.2 mg/dL (0.0-0.4); BILIRUBIN,TOTAL 0.2 mg/dL (0.2-1.3); BLOOD UREA NITROGEN 2 mg/dL (7-20); CALCIUM 8.8 mg/dL (8.4-10.2); CARBON DIOXIDE 21 mmol/L (22-30); CHLORIDE 109 mmol/L (98-107); GLUCOSE 105 mg/dL (75-110); LDH 275 U/L (313-618); LIPASE 33.9 U/L (23-300); POTASSIUM 3.8 mmol/L (3.6-5.0); SODIUM 137.1 mmol/L (137-145); TOTAL PROTEIN 5.6 g/dL (6.3-8.2)
[2017-10-28] MEDS: DOCUSATE SODIUM 100 MG CAPSULE PO SCH ×2 (11:17→18:24)
[2017-10-28] MEDS: PROMETHAZINE HCL INJ 25 MG/1 ML VIAL IV PRN (19:55)
[2017-10-28] MEDS: NORMAL SALINE 1000 ML 1,000 ML with THIAMINE HCL 100 MG, MVI, ADULT NO.1 WITH VIT K 10 ... IV SCH ×4 (21:49)
--- NOTE | 2017-10-29 09:38 | PDOC DISCHARGE SUMMARY ---
General - Admit/Disc Date/PCP Admission Date/Primary Care Provider: 10/26/17 17:12 Discharge Date: 10/29/17 - Additional Information Home Medications: Pyridoxine HCl (Vitamin B6) [Vitamin B-6] 75 mg PO DAILY #30 tablet 10/02/17 Promethazine HCl [Phenergan 25 mg Supp.rect] 1 supp [place] Q6H #20 supp.rect History of Present Illness History of Present Illness: DURAN ADKINS is a 26 year old female Hospital Course Hospital Course: admitted for first trimester hyperemesis now resolved. Was able to tolerate chicken strips yesterday and ate a full breakfast today without nausea or vomiting. Physical Exam - Physical Exam Vital Signs: Temp Pulse Resp BP Pulse Ox 98.5 F 83 20 110/48 L 100 10/29/17 08:07 10/29/17 08:07 10/29/17 08:07 10/29/17 08:07 10/29/17 08:07 Intake & Output 10/28/17 10/29/17 10/30/17 06:59 06:59 07:59 Intake Total 163 Output Total 800 Balance 163 -800 Weight 57.7 kg General appearance: PRESENT: no acute distress, cooperative GI/Abdominal exam: PRESENT: normal bowel sounds, soft Result Laboratory Results: 10/28/17 07:07 10/28/17 07:07 Plan Discharge Plan: discharge home with instructions for BRAT diet and a script for diclegis. Instructions given for how to take the diclegis. Time Spent: Less than 30 Minutes
[2017-10-29] MEDS: PROMETHAZINE HCL INJ 25 MG/1 ML VIAL IV PRN (10:42)
[2017-10-29] MEDS: DOCUSATE SODIUM 100 MG CAPSULE PO SCH (10:42)
[2017-10-29 11:53] VITALS: BP 94/58
== END 2017-10-29 13:00 | disposition home or self-care (01) ==
LOC: 2S 17:12
PROVIDERS: ADMIT Obstetrics & Gynecology Gynecology; ATTEND Obstetrics & Gynecology Gynecology
DX: O21.0 Mild hyperemesis gravidarum (principal); K59.09 Other constipation; O26.891 Other specified pregnancy related conditions, first trimester; Z3A.09 9 weeks gestation of pregnancy; O36.80X0 Pregnancy with inconclusive fetal viability, not applicable or unspecified
CPT/HCPCS: 36415; 82150; 83615; 83690; 84443; 85025; 80053; J3490 ×10; J2550 ×4; J3411 ×2; J7030 ×2; G0378; G0379

== ENCOUNTER 2017-10-31 21:11 | Emergency (ER) | payer MEDICAID ==
[2017-11-01] MEDS ORDERED: NORMAL SALINE 1000 ML 1,000 ML IV ONE (00:54)
[2017-11-01] MEDS ORDERED: METOCLOPRAMIDE HCL INJ/PF 10 MG/2 ML SDV IV ONE (00:54)
[2017-11-01] MEDS ORDERED: PROMETHAZINE HCL INJ 25 MG/1 ML VIAL IV ONE (01:44)
[2017-11-01 02:06] LABS: ALANINE AMINOTRANSFERASE 19 U/L (9-52); ALBUMIN 4.3 g/dL (3.5-5.0); ALKALINE PHOSPHATASE 59 U/L (38-126); ANION GAP 12 (5-19); ASPARTATE AMINO TRANSFERASE 15 U/L (14-36); BILIRUBIN,DIRECT 0.4 mg/dL (0.0-0.4); BILIRUBIN,TOTAL 0.4 mg/dL (0.2-1.3); BLOOD UREA NITROGEN 4 mg/dL (7-20); CALCIUM 10.1 mg/dL (8.4-10.2); CARBON DIOXIDE 24 mmol/L (22-30); CHLORIDE 102 mmol/L (98-107); GLUCOSE 100 mg/dL (75-110); LIPASE 26.2 U/L (23-300); POTASSIUM 4.1 mmol/L (3.6-5.0); SODIUM 137.5 mmol/L (137-145); TOTAL PROTEIN 7.2 g/dL (6.3-8.2)
--- NOTE | 2017-11-01 02:20 | ER Document Report ---
ED General - General Chief Complaint: Nausea/Vomiting Stated Complaint: VOMITING Time Seen by Provider: 11/01/17 00:53 Notes: Patient is a 26-year-old 10 weeks gestation who presents with nausea and vomiting for the past 24 hours. Patient was just discharged from the hospital on the for hyperemesis gravidarum. She states that initially she was doing well upon discharge she was unable to fill the medication which was prescribed her at time of discharge so she has not had any medications to treat her symptoms at home. Nothing seems to worsen her symptoms. She states that this feels very similar to when she had hyperemesis during her prior . She does note an associated generalized abdominal cramping pain around times of vomiting and immediately thereafter but no localized abdominal pain. No vaginal bleeding or discharge. No fever. No diarrhea. She has not yet contacted her LOGISTICS TEAM LEADER regarding her ongoing symptoms and inability to fill the medication that has been prescribed. TRAVEL OUTSIDE OF THE [place] IN LAST 30 DAYS: No COUNTRY TRAVELED TO/FROM: [facility] - Related Data Allergies/Adverse Reactions: No Known Allergies Allergy (Verified 11/01/17 00:54) Past Medical History - General Information source: Patient - Social History Smoking Status: Never Smoker Chew tobacco use (# tins/day): No Frequency of alcohol use: None Drug Abuse: None Lives with: Spouse/Significant other Family History: DM, Hypertension Patient has suicidal ideation: No Patient has homicidal ideation: No - Past Medical History Cardiac Medical History: Reports: Hx Hypertension - Turn Neurological Medical History: 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 Renal/ Medical History: Denies: Hx Peritoneal Dialysis Psychiatric Medical History: Denies: Hx Depression - Immunizations Immunizations up to date: Yes Hx Diphtheria, Pertussis, Tetanus Vaccination: Yes Review of Systems - Review of Systems Notes: Constitutional: Negative for fever. HENT: Negative for sore throat. Eyes: Negative for visual changes. Cardiovascular: Negative for chest pain. Respiratory: Negative for shortness of breath. Gastrointestinal: Positive for abdominal cramping and vomiting Genitourinary: Negative for dysuria. Musculoskeletal: Negative for back pain. Skin: Negative for rash. Neurological: Negative for headaches, weakness or numbness. 10 point ROS negative except as marked above and in HPI. Physical Exam - Vital signs Vitals: Temp Pulse Resp BP Pulse Ox 98.5 F 96 16 111/67 100 10/31/17 21:43 10/31/17 21:43 10/31/17 21:43 10/31/17 21:43 10/31/17 21:43 Interpretation: Normal Notes: PHYSICAL EXAMINATION: GENERAL: Appears moderately uncomfortable but in no acute distress HEAD: Atraumatic, normocephalic. EYES: Pupils equal round and reactive to light, extraocular movements intact, sclera anicteric, conjunctiva are normal. ENT: nares patent, oropharynx clear without exudates. Moderately dry mucous membranes. NECK: Normal range of motion, supple without lymphadenopathy LUNGS: Breath sounds clear to auscultation bilaterally and equal. No wheezes rales or rhonchi. HEART: Regular rate and rhythm without murmurs ABDOMEN: Soft, nontender, normoactive bowel sounds. No guarding, no rebound. No masses appreciated. EXTREMITIES: Normal range of motion, no pitting or edema. No cyanosis. NEUROLOGICAL: No focal neurological deficits. Moves all extremities spontaneously and on command. PSYCH: Moderately anxious SKIN: Warm, Dry, normal turgor, no rashes or lesions noted. Course - Re-evaluation Re-evalutation: 11/01/17 02:17 Patient presents with persistent vomiting during . Vitals at time of arrival unremarkable without tachycardia or hypotension. Laboratories reveal a normal creatinine and no evidence of significant dehydration. Patient was able to tolerate oral intake here in the emergency department. IV fluids were provided. Bedside ultrasound shows appropriate heart rate for gestational age with active movement. No vaginal bleeding or discharge. Based on abdominal exam, vitals and history I do not suspect an acute appendicitis, cholestasis of , acute cholecystitis, pancreatitis, or bowel obstruction. Patient will be started on a combination of doxylamine and vitamin B6. At this time will discharge with return precautions and follow-up recommendations. Verbal discharge instructions given a the bedside and opportunity for questions given. Medication warnings reviewed. Patient is in agreement with this plan and has verbalized understanding of return precautions and the need for primary care follow-up in the next 24-72 hours. - Vital Signs Vital signs: Temp Pulse Resp BP Pulse Ox 98.4 F 54 L 14 105/57 L 94 11/01/17 03:05 11/01/17 03:05 11/01/17 03:05 11/01/17 03:05 11/01/17 03:05 - Laboratory Result Diagrams: 11/01/17 01:37 Laboratory results interpreted by me: 11/01/17 01:37 BUN 4 L Discharge - Discharge Clinical Impression: Hyperemesis gravidarum Nausea & vomiting Qualifiers: Vomiting type: unspecified Vomiting Intractability: non-intractable Qualified Code(s): R11.2 - Nausea with vomiting, unspecified Condition: Good Disposition: HOME, SELF-CARE Additional Instructions: You have been seen for vomiting during . You should continue to drink plenty of water and consider taking a solution such as Pedialyte if your having difficulty eating food. Please return if you become unable to drink any fluids for more than 12 hours, urinate less than twice a day, pass out, or have any other symptoms that are concerning to you. For nausea and vomiting during I recommend: Start with 10-12.5 mg of pyridoxine (vitamin B6) three times a day for 2 days. If not fully effective, Increase to 12.5 mg of pyridoxine four times a day for 2 days. If not fully effective, Increase to 25 mg of pyridoxine three times a day for 2 days. If not fully effective, Continue 25 mg pyridoxine 3 times a day, and add 12.5 mg of doxylamine before bedtime each day for 2 days. If not fully effective, Continue 25 mg pyridoxine 3 times a day, and take 12.5 mg of doxylamine twice a day. If not fully effective, Continue 25 mg pyridoxine 3 times a day, and take 12.5 mg of doxylamine three times a day. If not fully effective, Continue 25 mg pyridoxine 3 times a day, and 12.5 mg of doxylamine 3 times a day , while adding Emetrol, one to two tablespoons (15-30 cc) taken once or twice a day as needed. (Emetrol is an [id number] mixture of sugar syrups and phosphoric acid [phosphorylated carbohydrate solution]) that acts by soothing the actual wall of the gastrointestinal tract). If not fully effective, Consult with your doctor. Referrals: HONG MAIER MD [Primary Care Provider] - Follow up as needed
[2017-11-01 03:07] VITALS: BP 105/57
== END 2017-11-01 03:05 | disposition home or self-care (01) ==
LOC: ER 21:11
DX: O21.0 Mild hyperemesis gravidarum (principal); O16.1 Unspecified maternal hypertension, first trimester; O99.611 Diseases of the digestive system complicating pregnancy, first trimester; R10.84 Generalized abdominal pain; Z3A.10 10 weeks gestation of pregnancy
CPT/HCPCS: 99284; 96361; 96374; 36415; 83690; 80053; J2550; J7030

== ENCOUNTER 2017-12-03 18:04 | Emergency (ER) | payer MEDICAID ==
[2017-12-03] MEDS ORDERED: NORMAL SALINE 1000 ML 1,000 ML IV ONE (19:10)
--- NOTE | 2017-12-03 19:10 | ER Document Report ---
ED Medical Screen (RME) - General Chief Complaint: Vomiting Stated Complaint: VOMITING Time Seen by Provider: 12/03/17 19:06 Notes: 27-year-old female patient 15 weeks with hyperemesis gravidarum. States the flea just is not working, has been on Reglan it did not work. She is here claiming to be dehydrated with nausea, vomiting, pelvic cramping. She was spotting for 2 days but it is stopped. I have greeted and performed a rapid initial assessment of this patient. A comprehensive ED assessment and evaluation of the patient, analysis of test results and completion of the medical decision making process will be conducted by additional ED providers. TRAVEL OUTSIDE OF THE [place] IN LAST 30 DAYS: No COUNTRY TRAVELED TO/FROM: [facility] - Related Data Allergies/Adverse Reactions: No Known Allergies Allergy (Verified 12/03/17 19:02) Past Medical History - Social History Chew tobacco use (# tins/day): No Frequency of alcohol use: None Drug Abuse: None - Past Medical History Cardiac Medical History: Reports: Hx Hypertension - Turn Neurological Medical History: 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 Renal/ Medical History: Denies: Hx Peritoneal Dialysis Psychiatric Medical History: Denies: Hx Depression - Immunizations Immunizations up to date: Yes Hx Diphtheria, Pertussis, Tetanus Vaccination: Yes History of Influenza Vaccine for 05/2017 - 10/2017 Season: Refused Physical Exam - Vital signs Vitals: Temp Pulse Resp BP Pulse Ox 97.9 F 122 H 18 115/82 100 12/03/17 18:08 12/03/17 18:08 12/03/17 18:08 12/03/17 18:08 12/03/17 18:08 Course - Vital Signs Vital signs: Temp Pulse Resp BP Pulse Ox 97.9 F 122 H 18 115/82 100 12/03/17 18:08 12/03/17 18:08 12/03/17 18:08 12/03/17 18:08 12/03/17 18:08
[2017-12-03] MEDS ORDERED: METOCLOPRAMIDE HCL INJ/PF 10 MG/2 ML SDV IV ONE (19:11)
[2017-12-03 19:36] LABS: ABSOLUTE LYMPHOCYTES (AUTO) 1.2 10^3/uL (0.5-4.7); ABSOLUTE MONOCYTES (AUTO) 0.6 10^3/uL (0.1-1.4); ABSOLUTE NEUT (AUTO) 4.7 10^3/uL (1.7-8.2); BASOPHILS % (AUTO) 0.2 % (0-2); EOSINOPHILS % (AUTO) 0.3 % (0-6); HEMATOCRIT 36.1 % (36.0-47.0); HEMOGLOBIN 11.9 g/dL (12.0-15.5); MEAN CORPUSCULAR HEMOGLOBIN 26.5 pg (27.0-33.4); MEAN CORPUSCULAR HGB CONC 32.8 g/dL (32.0-36.0); MEAN CORPUSCULAR VOLUME 81 fl (80-97); MONOCYTES % (AUTO) 8.8 % (3-13); PLATELET COUNT 211 10^3/uL (150-450); RED BLOOD COUNT 4.47 10^6/uL (3.72-5.28); RED CELL DISTRIBUTION WIDTH 15.6 % (11.5-14.0); SEGMENTED NEUTROPHILS % (AUTO) 72.7 % (42-78); TOTAL CELLS COUNTED % (AUTO) 100 %; WHITE BLOOD COUNT 6.5 10^3/uL (4.0-10.5)
[2017-12-03 19:51] LABS: ALANINE AMINOTRANSFERASE 19 U/L (9-52); ALBUMIN 4.2 g/dL (3.5-5.0); ALKALINE PHOSPHATASE 51 U/L (38-126); ANION GAP 13 (5-19); ASPARTATE AMINO TRANSFERASE 17 U/L (14-36); BILIRUBIN,DIRECT 0.4 mg/dL (0.0-0.4); BILIRUBIN,TOTAL 0.4 mg/dL (0.2-1.3); BLOOD UREA NITROGEN 3 mg/dL (7-20); CALCIUM 9.8 mg/dL (8.4-10.2); CARBON DIOXIDE 23 mmol/L (22-30); CHLORIDE 102 mmol/L (98-107); GLUCOSE 98 mg/dL (75-110); POTASSIUM 4.1 mmol/L (3.6-5.0); SODIUM 138.4 mmol/L (137-145); TOTAL PROTEIN 7.5 g/dL (6.3-8.2)
[2017-12-03 20:24] LABS: APPEARANCE,URINE SLIGHTLY-CLOUDY; BILIRUBIN,URINE NEGATIVE (NEGATIVE); COLOR,URINE YELLOW; GLUCOSE, URINE NEGATIVE (NEGATIVE); KETONES,URINE NEGATIVE (NEGATIVE); LEUKOCYTE ESTERASE,URINE NEGATIVE (NEGATIVE); NITRITE,URINE NEGATIVE (NEGATIVE); PROTEIN,URINE NEGATIVE (NEGATIVE); URINE SPECIFIC GRAVITY 1.012; UROBILINOGEN,URINE NEGATIVE mg/dL (<2.0)
--- NOTE | 2017-12-03 20:39 | ER Document Report ---
ED General - General Chief Complaint: Vomiting Stated Complaint: VOMITING Time Seen by Provider: 12/03/17 19:06 Notes: Patient is a 27-year-old female at 15 weeks gestation by ultrasound with a history of hyperemesis gravidarum who presents with persistent vomiting. Patient reports that she has had persistent vomiting throughout the duration of her but that has been worse over the last several days. She has been trying Reglan at home without any significant improvement of her symptoms. Any attempt to eating or drinking worsens her symptoms. She denies any associated localized abdominal pain, headache, neck pain or altered mental status. No fever or constitutional symptoms. She states that she contacted her CONTENT MANAGEMENT CONSULTANT who encouraged her to come to the emergency department as she likely was getting dehydrated. The patient states that she may require placement of a PICC line similar to her prior if her vomiting persists per her CONTENT MANAGEMENT CONSULTANT. She denies any vaginal bleeding or discharge. TRAVEL OUTSIDE OF THE [place] IN LAST 30 DAYS: No COUNTRY TRAVELED TO/FROM: [facility] - Related Data Allergies/Adverse Reactions: No Known Allergies Allergy (Verified 12/03/17 19:02) Past Medical History - General Information source: Patient - Social History Smoking Status: Never Smoker Chew tobacco use (# tins/day): No Frequency of alcohol use: None Drug Abuse: None Lives with: Spouse/Significant other Family History: DM, Hypertension Patient has suicidal ideation: No Patient has homicidal ideation: No - Past Medical History Cardiac Medical History: Reports: Hx Hypertension - Turn Neurological Medical History: 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 Renal/ Medical History: Denies: Hx Peritoneal Dialysis Psychiatric Medical History: Denies: Hx Depression - Immunizations Immunizations up to date: Yes Hx Diphtheria, Pertussis, Tetanus Vaccination: Yes Review of Systems - Review of Systems Notes: Constitutional: Negative for fever. HENT: Negative for sore throat. Eyes: Negative for visual changes. Cardiovascular: Negative for chest pain. Respiratory: Negative for shortness of breath. Gastrointestinal: Negative for abdominal pain, positive for vomiting Genitourinary: Negative for dysuria. Musculoskeletal: Negative for back pain. Skin: Negative for rash. Neurological: Negative for headaches, weakness or numbness. 10 point ROS negative except as marked above and in HPI. Physical Exam - Vital signs Vitals: Temp Pulse Resp BP Pulse Ox 97.9 F 122 H 18 115/82 100 12/03/17 18:08 12/03/17 18:08 12/03/17 18:08 12/03/17 18:08 12/03/17 18:08 Interpretation: Tachycardic Notes: PHYSICAL EXAMINATION: GENERAL: Well-appearing, well-nourished and in no acute distress. HEAD: Atraumatic, normocephalic. EYES: Pupils equal round and reactive to light, extraocular movements intact, sclera anicteric, conjunctiva are normal. ENT: nares patent, oropharynx clear without exudates. Moderately dry mucous membranes. NECK: Normal range of motion, supple without lymphadenopathy LUNGS: Breath sounds clear to auscultation bilaterally and equal. No wheezes rales or rhonchi. HEART: Regular rate and rhythm without murmurs ABDOMEN: Soft, gravid uterus, nontender, normoactive bowel sounds. No guarding , no rebound. No masses appreciated. EXTREMITIES: Normal range of motion, no pitting or edema. No cyanosis. NEUROLOGICAL: No focal neurological deficits. Moves all extremities spontaneously and on command. PSYCH: Normal mood, normal affect. SKIN: Warm, Dry, normal turgor, no rashes or lesions noted. Course - Re-evaluation Re-evalutation: 12/03/17 20:36 Patient presents with persistent vomiting during . Vitals at time of arrival unremarkable without tachycardia or hypotension. Laboratories reveal a normal creatinine and no evidence of significant dehydration. Patient was able to tolerate oral intake here in the emergency department. IV fluids were provided. No vaginal bleeding or discharge. Based on abdominal exam, vitals and history I do not suspect an acute appendicitis, cholestasis of , acute cholecystitis, pancreatitis, or bowel obstruction. Patient carries a diagnosis of hyperemesis gravidarum and is currently following with her CONTENT MANAGEMENT CONSULTANT regarding this issue. At this time will discharge with return precautions and follow-up recommendations. Verbal discharge instructions given a the bedside and opportunity for questions given. Medication warnings reviewed. Patient is in agreement with this plan and has verbalized understanding of return precautions and the need for primary care follow-up in the next 24-72 hours. - Vital Signs Vital signs: Temp Pulse Resp BP Pulse Ox 98.1 F 95 18 113/66 100 12/03/17 20:53 12/03/17 20:53 12/03/17 20:53 12/03/17 20:53 12/03/17 20:53 - Laboratory Result Diagrams: 12/03/17 19:26 12/03/17 19:26 Laboratory results interpreted by me: 12/03/17 12/03/17 12/03/17 19:26 19:26 20:04 Hgb 11.9 L MCH 26.5 L RDW 15.6 H BUN 3 L Creatinine 0.48 L Urine Ascorbic Acid 20 H Discharge - Discharge Clinical Impression: Dehydration, Hyperemesis gravidarum Condition: Good Disposition: HOME, SELF-CARE Additional Instructions: You have been seen for vomiting during . You should continue to drink plenty of water and consider taking a solution such as Pedialyte if your having difficulty eating food. Please return if you become unable to drink any fluids for more than 12 hours, urinate less than twice a day, pass out, or have any other symptoms that are concerning to you. Follow-up with your CONTENT MANAGEMENT CONSULTANT as scheduled regarding her hyperemesis Referrals: MELONIE ALVAREZ MD [Primary Care Provider] - Follow up as needed
[2017-12-03 20:54] VITALS: BP 113/66
== END 2017-12-03 20:54 | disposition home or self-care (01) ==
LOC: ER 18:04
DX: O21.0 Mild hyperemesis gravidarum (principal); E86.0 Dehydration; Z3A.15 15 weeks gestation of pregnancy
CPT/HCPCS: 99284; 96360; 36415; 85025; 80053; 81001; J7030

== ENCOUNTER 2018-03-20 21:08 | Outpatient (CLI) | payer MEDICAID ==
[2018-03-20 21:42] LABS: AMORPHOUS SEDIMENT,URINE TRACE /HPF; APPEARANCE,URINE CLOUDY; BILIRUBIN,URINE NEGATIVE (NEGATIVE); COLOR,URINE YELLOW; GLUCOSE, URINE NEGATIVE (NEGATIVE); KETONES,URINE NEGATIVE (NEGATIVE); LEUKOCYTE ESTERASE,URINE NEGATIVE (NEGATIVE); NITRITE,URINE NEGATIVE (NEGATIVE); PROTEIN,URINE 30 mg/dL (NEGATIVE); URINE SPECIFIC GRAVITY 1.025
[2018-03-20 22:01] LABS: URINE AMPHETAMINES SCREEN NEGATIVE; URINE BARBITURATES SCREEN NEGATIVE; URINE BENZODIAZEPINES SCREEN NEGATIVE; URINE COCAINE SCREEN NEGATIVE; URINE MARIJUANA (THC) SCREEN NEGATIVE; URINE METHADONE SCREEN NEGATIVE; URINE PHENCYCLIDINE SCREEN NEGATIVE
[2018-03-20 22:06] LABS: BACTERIA (WET MOUNT) 4+ BACTERIA SEEN; EPITHELIALS (WET MOUNT) 3+ EPITHELIALS SEEN; T.VAGINALIS (WET MOUNT) NO TRICHOMONAS SEEN; WBCS (WET MOUNT) FEW WBCS SEEN; YEAST (WET MOUNT) NO YEAST SEEN
--- NOTE | 2018-03-20 22:24 | RADIOLOGY REPORT (SQ) ---
EXAM DESCRIPTION: U/S OB LIMITED COMPLETED DATE/TIME: 03/20/2018 10:10 pm REASON FOR STUDY: cramping, need cervical length COMPARISON: None. TECHNIQUE: Limited transvaginal grayscale ultrasound for evaluation of specific requested obstetrica l parameters. LIMITATIONS: None. FINDINGS: CERVICAL LENGTH: 3.4 cm Closed. FHR: 141 beats per minute. PRESENTATION: Cephalic. OTHER: Anterior placenta IMPRESSION: LIMITED OBSTETRICAL ULTRASOUND WITH MEASURED PARAMETERS DELINEATED ABOVE. Trimester of : Third trimester - 28 weeks to delivery. TECHNICAL DOCUMENTATION: JOB ID: [id number] [employer]- All Rights Reserved Reading location - IP/workstation name: [email or web address]
== END 2018-03-20 22:51 | disposition home or self-care (01) ==
LOC: LC 21:08
PROVIDERS: ATTEND Student in an Organized Health Care Education/Training Program
PROC: 4A1HXCZ Monitoring of Products of Conception, Cardiac Rate, External Approach (ICD-10-PCS; principal; 2018-03-20)
DX: O98.813 Other maternal infectious and parasitic diseases complicating pregnancy, third trimester (principal); N76.0 Acute vaginitis; B96.89 Other specified bacterial agents as the cause of diseases classified elsewhere; O99.283 Endocrine, nutritional and metabolic diseases complicating pregnancy, third trimester; E86.0 Dehydration; Z3A.30 30 weeks gestation of pregnancy
CPT/HCPCS: 76815; 80307; 81001; 87210

== ENCOUNTER 2018-04-13 17:05 | Outpatient (CLI) | payer MEDICAID ==
--- NOTE | 2018-04-13 18:30 | Non Stress Test Report ---
Non Stress Test Datetime Report Generated by CPN: 04/13/2018 18:29 DEMOGRAPHIC EGA NST: 33.3 INDICATION Indication for Study: Diabetes Mellitus; Ordered by Provider MONITORING Monitor Explained: Monitor Explained; Test Explained; Patient Verbalized Understanding Time on Monitor: 04/13/2018 17:13 Time off Monitor: 04/13/2018 18:21 NST Duration: 68 NST INTERVENTIONS NST Interventions: PO Hydration; Reposition Patient Physician Notified NST: Dr. Ibarra BABY A: [id number] BABY A Movement : Present Contraction Frequency : none FHR Baseline : 140 Accelerations : 15X15 Decelerations : None Variability : Moderate 6-25bpm NST Review: Meets Criteria for Reactive NST NST Review and Verified By : ADELA Wheat Results: Reactive NST REPORT Report Trigger: Send Report
== END 2018-04-13 18:21 | disposition home or self-care (01) ==
LOC: LC 17:05
PROVIDERS: ATTEND Obstetrics & Gynecology
PROC: 4A1HXCZ Monitoring of Products of Conception, Cardiac Rate, External Approach (ICD-10-PCS; principal; 2018-04-13)
DX: Z34.93 Encounter for supervision of normal pregnancy, unspecified, third trimester (principal); Z3A.33 33 weeks gestation of pregnancy
CPT/HCPCS: 59025

== ENCOUNTER 2018-04-26 16:53 | Outpatient (CLI) | payer MEDICAID ==
--- NOTE | 2018-04-26 17:43 | Non Stress Test Report ---
Non Stress Test Datetime Report Generated by CPN: 04/26/2018 17:42 DEMOGRAPHIC EGA NST: 35.2 INDICATION Indication for Study: Ordered by Provider Indication for Study (NST) Other: repeat NST VITAL SIGNS Temperature - NST: 98.2 Pulse - NST: 109 RESP - NST: 20 NBPSYS NST: 107 NBPDIA NST: 62 MONITORING Monitor Explained: Monitor Explained; Test Explained; Patient Verbalized Understanding Time on Monitor: 04/26/2018 17:05 Time off Monitor: 04/26/2018 17:33 NST Duration: 28 NST INTERVENTIONS NST Interventions: PO Hydration; Reposition Patient Physician Notified NST: Dr. Ibarra BABY A: [id number] BABY A Movement : Present Contraction Frequency : irritablity FHR Baseline : 140 Accelerations : 15X15 Decelerations : None Variability : Moderate 6-25bpm NST Review: Meets Criteria for Reactive NST NST Review and Verified By : Vishal Norwood RN NST Results: Reactive NST REPORT Report Trigger: Send Report
== END 2018-04-26 17:38 | disposition home or self-care (01) ==
LOC: LC 16:53
PROVIDERS: ATTEND Obstetrics & Gynecology
DX: Z34.93 Encounter for supervision of normal pregnancy, unspecified, third trimester (principal); Z3A.35 35 weeks gestation of pregnancy
CPT/HCPCS: 59025

== ENCOUNTER 2018-05-19 02:05 | Outpatient (CLI) | payer MEDICAID ==
[2018-05-19] MEDS ORDERED: MAG HYDROX/AL HYDROX/SIMETH SUSP 30 ML UDCUP ONE (03:02)
[2018-05-19 03:51] LABS: URINE AMPHETAMINES SCREEN NEGATIVE; URINE BARBITURATES SCREEN NEGATIVE; URINE BENZODIAZEPINES SCREEN NEGATIVE; URINE COCAINE SCREEN NEGATIVE; URINE MARIJUANA (THC) SCREEN NEGATIVE; URINE METHADONE SCREEN NEGATIVE; URINE PHENCYCLIDINE SCREEN NEGATIVE
[2018-05-19 03:54] LABS: APPEARANCE,URINE SLIGHTLY-CLOUDY; BILIRUBIN,URINE NEGATIVE (NEGATIVE); COLOR,URINE YELLOW; GLUCOSE, URINE NEGATIVE (NEGATIVE); KETONES,URINE NEGATIVE (NEGATIVE); LEUKOCYTE ESTERASE,URINE NEGATIVE (NEGATIVE); NITRITE,URINE NEGATIVE (NEGATIVE); PROTEIN,URINE 100 mg/dL (NEGATIVE); URINE SPECIFIC GRAVITY 1.028
--- NOTE | 2018-05-19 04:08 | Non Stress Test Report ---
Non Stress Test Datetime Report Generated by CPN: 05/19/2018 04:08 DEMOGRAPHIC Test Number: 3 EGA NST: 38.4 INDICATION Indication for Study: Ordered by Provider URINE RESULTS Urine Protein, NST: Positive Urine Ketones - NST: Negative Urine Glucose - NST: Negative Urine Blood - NST: Negative MONITORING Monitor Explained: Monitor Explained; Test Explained; Patient Verbalized Understanding Time on Monitor: 05/19/2018 02:17 Time off Monitor: 05/19/2018 03:11 NST Duration: 54 NST INTERVENTIONS NST Interventions: PO Hydration; Reposition Patient Physician Notified NST: Dr. Nixon BABY A: [id number] BABY A Movement : Present Contraction Frequency : 2-10 FHR Baseline : 130 Accelerations : 15X15 Decelerations : None Variability : Moderate 6-25bpm NST Review: Meets Criteria for Reactive NST NST Review and Verified By : Darlene Fernández RN NST Results: Reactive NST REPORT Report Trigger: Send Report
== END 2018-05-19 05:14 | disposition home or self-care (01) ==
LOC: LC 02:05
PROVIDERS: ATTEND Student in an Organized Health Care Education/Training Program
PROC: 4A1HXCZ Monitoring of Products of Conception, Cardiac Rate, External Approach (ICD-10-PCS; principal; 2018-05-19)
DX: O47.1 False labor at or after 37 completed weeks of gestation (principal); Z3A.38 38 weeks gestation of pregnancy
CPT/HCPCS: 59025; 81001; 80307; J3490

== ENCOUNTER 2018-05-23 08:14 | Inpatient (IN) | payer MEDICAID ==
[2018-05-23] MEDS ORDERED: DEXTROSE 5%-LACTATED RINGERS 1,000 ML IV PRN (08:49)
[2018-05-23 09:07] LABS: URINE AMPHETAMINES SCREEN NEGATIVE; URINE BARBITURATES SCREEN NEGATIVE; URINE BENZODIAZEPINES SCREEN NEGATIVE; URINE COCAINE SCREEN NEGATIVE; URINE MARIJUANA (THC) SCREEN NEGATIVE; URINE METHADONE SCREEN NEGATIVE; URINE PHENCYCLIDINE SCREEN NEGATIVE
[2018-05-23] MEDS ORDERED: EPHEDRINE SULFATE INJ 50 MG/1 ML AMPULE ONE ×2 (09:20→10:44)
[2018-05-23] MEDS ORDERED: MISOPROSTOL 0.2 MG TABLET ONE (09:20)
[2018-05-23] MEDS ORDERED: OXYTOCIN 10 UNIT/ML VIAL ONE (09:20)
[2018-05-23] MEDS ORDERED: OXYTOCIN/NORMAL SALINE 20 UNIT/1,000 ML RTUINJ ONE (09:21)
[2018-05-23] MEDS ORDERED: FENTANYL/BUPIVACAINE/NS/PF 300 MCG/150 ML RTUINJ EPI ONE (09:21)
[2018-05-23] MEDS ORDERED: LIDOCAINE 1% INJ-PF (10 MG/ML) 30 ML SDV ONE (09:21)
[2018-05-23] MEDS ORDERED: BUPIVACAINE HCL 0.5 % INJ/PF 30 ML SDV ONE (09:21)
[2018-05-23 09:30] LABS: ABSOLUTE BASOPHILS # (AUTO) 0.1 10^3/uL (0.0-0.2); ABSOLUTE LYMPHOCYTES (AUTO) 1.5 10^3/uL (0.5-4.7); ABSOLUTE MONOCYTES (AUTO) 0.8 10^3/uL (0.1-1.4); ABSOLUTE NEUT (AUTO) 7.7 10^3/uL (1.7-8.2); BASOPHILS % (AUTO) 0.5 % (0-2); EOSINOPHILS % (AUTO) 0.2 % (0-6); HEMATOCRIT 26.6 % (36.0-47.0); HEMOGLOBIN 8.3 g/dL (12.0-15.5); LYMPHOCYTES % (AUTO) 15.2 % (13-45); MEAN CORPUSCULAR HEMOGLOBIN 21.1 pg (27.0-33.4); MEAN CORPUSCULAR HGB CONC 31.2 g/dL (32.0-36.0); MEAN CORPUSCULAR VOLUME 68 fl (80-97); MONOCYTES % (AUTO) 8.3 % (3-13); PLATELET COUNT 206 10^3/uL (150-450); RED BLOOD COUNT 3.92 10^6/uL (3.72-5.28); RED CELL DISTRIBUTION WIDTH 17.4 % (11.5-14.0); SEGMENTED NEUTROPHILS % (AUTO) 75.8 % (42-78); TOTAL CELLS COUNTED % (AUTO) 100 %; WHITE BLOOD COUNT 10.1 10^3/uL (4.0-10.5)
[2018-05-23] MEDS ORDERED: FENTANYL CITRATE INJ/PF 100 MCG/2 ML AMPUL ONE (10:44)
[2018-05-23] MEDS ORDERED: PHENYLEPHRINE HCL INJ/PF 10 MG/1 ML SDV ONE (10:44)
--- NOTE | 2018-05-23 13:43 | L&D Progress Notes ---
PROGRESS NOTES Datetime Report Generated by CPN: 05/23/2018 13:43 PROGRESS NOTE Impression: Normal Progression of Labor; Reassuring Heart Rate Impression: Normal Progression of Labor; Reassuring Heart Rate Procedures: Sterile Vag Exam Procedures: Sterile Vag Exam Plan: Anticipate Vaginal Delivery Plan: Continue Present Management; Anticipate Vaginal Delivery Vital Signs : Reviewed; Within Normal Limits Vital Signs : Reviewed; Within Normal Limits Comment: Pt becoming uncomfortable with contractions, feeling increased rectal pressure. Position changes made, pt encourged to breath. Anticipate . Attending MD is Dr Ibarra Comment: Pt doing well, comfortable with the epidural. +scalp stim from VE. Plan: Position changes encouraged Anticipate Attending MD is Dr Ibarra VAGINAL EXAM Dilatation: 9 Dilatation: 6 Dilatation: 4 Effacement: 90 Effacement: 90 Effacement: 80 Station: 0 Station: -1 Station: 0 Contractions: 2-4 Contractions: q 5 min MEMBRANES Membranes: Ruptured Membranes: Ruptured Membranes: Ruptured Amniotic Fluid Color: Clear Amniotic Fluid Color: Clear Amniotic Fluid Color: Clear FETUS A FHR - Baseline: 120 FHR - Baseline: 130 Monitoring: External US Monitoring: External US Variability: Moderate 6-25bpm Variability: Moderate 6-25bpm Accelerations: 15X15 Accelerations: 15X15 Decelerations: None Decelerations: Early; Variable FHR Category: Category I FHR Category: Category I FHR Comments: occassional variable decel, overall reassuring SIGNATURE SIGNATURE: [id number] SIGNATURE: [id number] SIGNATURE: [id number] SIGNATURE: [id number] Assignment: Kali Ibarra MD Signature: with User ID: [email or web address] : with User ID: [email or web address]
[2018-05-23] MEDS ORDERED: OXYTOCIN/NORMAL SALINE 20 UNIT/1,000 ML RTUINJ IV PRN (15:08)
[2018-05-23] MEDS ORDERED: ACETAMINOPHEN WITH CODEINE #3 TABLET PO PRN (15:08)
[2018-05-23] MEDS ORDERED: ZOLPIDEM TARTRATE 5 MG TABLET PO PRN (15:08)
[2018-05-23] MEDS ORDERED: BENZOCAINE/MENTHOL AEROSOL SPRAY 56 ML TOP PRN (15:08)
[2018-05-23] MEDS ORDERED: MEASLES,MUMPS&RUBELLA VACC/PF 0.5 ML VIAL SUBCUT PRN (15:08)
[2018-05-23] MEDS ORDERED: DIPH/PERTUSS(ACELL)/TETANUS VAC/PF 0.5 ML SYR (>=10YO) IM PRN (15:08)
[2018-05-23] MEDS ORDERED: DIBUCAINE 1% OINTMENT 28 GM TP PRN (15:08)
--- NOTE | 2018-05-23 17:06 | Admission Physical ---
Datetime Report Generated by CPN: 05/23/2018 17:05 CURRENT ADMISSION Chief Complaint: Uterine Contractions Admit Impression : Term, Intrauterine ; Active Labor Admit Impression- Other: SROM here in Labor and Delivery, clear fluid Admit Plan: Admit to Unit; Initiate Labor Protocol ALLERGIES Medication Allergies: No Medication Allergies: No Known Allergies (05/23/2018) Latex: No Latex Allergies Food Allergies: N/A Environmental Allergies: N/A OBSTETRICAL HISTORY EDC: 05/29/2018 00:00 : 3 Para: 1 Term: 0 : 1 SAB: 0 IAB: 1 Ectopic: 0 Livin Cesareans: 0 VBACs: 0 Multiple Births: 0 Gestational Diabetes: Yes Rh Sensitization: No Incompetent Cervix: No JOSUE: No Infertility: No ART Treatment: No Uterine Anomaly: No IUGR: No Hx Previous C/S: No Macrosomia: No Hx Loss/Stillborn: No PIH: Yes Hx : No Placenta Previa/Abruption: No Depression/PP Depression: No PTL/PROM: No Post Hemorrhage: No Current Procedures: Ultrasound Obstetrical History Comments: G1 - 2015, , Boy, Pre E G2 - 2016, EAB G3 - Current , GDM SEE RECORDS Alcohol: No Marijuana : No Cocaine: No Other Illicit Drugs: No Cigarettes: Never Smoker. [id number] MEDICAL HISTORY Diabetes: Yes Diabetes Type: Gestational Diabetes Blood Transfusion: No Pulmonary Disease (Asthma, TB): No Breast Disease: No Hypertension: No Packaging Specialist Surgery: No Heart Disease: No Hosp/Surgery: Yes Autoimmune Disorder: No Anesthetic Complications: No Kidney Disease: No Abnormal Pap Smear: No Neuro/Epilepsy: No Psychiatric Disorders: No Other Medical Diseases: No Hepatitis/Liver Disease: No Significant Family History: No Varicosities/Phlebitis: No Trauma/Violence : No Thyroid Dysfunction: No Medical History Comments: Childbirth, Hyperemesis INFECTIOUS HISTORY Gonorrhea: No Genital Herpes: No Chlamydia: No Tuberculosis: No Syphilis: No Hepatitis: No HIV/AIDS Exposure: No Rash or Viral Illness: No HPV: No PHYSICAL EXAM General: Normal HEENT: Normal Neurologic: Normal Thyroid: Normal Heart: Normal Lungs: Normal Breast: Normal Back: Normal Abdomen: Normal Genitourinary Exam: Normal Extremities: Normal DTRs: Normal Pelvic Type: Adequate Vital Signs: Reviewed; Within Normal Limits VAGINAL EXAM Dilatation: 9 Effacement: 90 Station: 0 Contraction Comments: 2-4 MEMBRANES Membranes: Ruptured Amniotic Fluid Color: Clear FETUS A EGA: 39.1 Monitoring: External US FHR- Baseline: 130 Variability: Moderate 6-25bpm Accelerations: 10X10 Decelerations: None FHR Category: Category I Admit Comment: Pt presents c/o increasing contractions, then felt warm fluid leaking from the vagina here on the unit once she got into the bed. +leaking for clear amniotic fluid noted prior to VE. Pt desires an epidural. Hx of GDM-DC this . Hx of Eclampsia post with her last PLANS FOR LABOR AND DELIVERY Labor and Delivery: None Pain Management: Epidural Feeding Preference: Breast Benefit of Breast Feed Discussed: Yes Circumcision: N/A INFORMED CONSENT Assignment: Kali Ibarra MD Signature: with User ID: [email or web address] : with User ID: [email or web address]
--- NOTE | 2018-05-23 17:11 | Delivery Summary ---
Del Sum A-C Datetime Report Generated by CPN: 05/23/2018 17:10 DELIVERY PERSONNEL DELIVERY PERSONNEL: [id number] Delivery Doctor:: Teena Miller CNM Labor and Delivery Nurse:: Gurwinder Norwood RNparking lot supervisor Nurse:: Isela White RN Gallery Or Museum Curator/WAGON WINDER: Cecelia Bauer CNA II Additional Personnel: : Lucio Mcconnell RN MATERNAL INFORMATION Delivery Anesthesia: Epidural Medications After Delivery: Pitocin Bolus-Please Comment; Pitocin Drip 20 Units/1000ml NSS Maternal Complications: None Provider Comments: of viable baby girl, SWETHA position. Crying in stable condition, placed on pts abdoman. Cord clamped and cut. Cord blood obtained. 3 VC. Placenta S/C/I IV Pitocin infusing, decreased locia rubra. Small hemostatic Rt labial lac noted, no repair needed. VSS, pt in stable condition, skin to skin, plans to breastfeed. Dr Ibarra is the attending MD LABOR SUMMARY EDC: 05/29/2018 00:00 No. Babies in Womb: 1 Attempted: No Labor Anesthesia: Epidural LABOR INFORMATION Reason for Induction: Not Applicable Onset of Labor: 05/23/2018 08:30 Complete Dilatation: 05/23/2018 14:30 Other Ripening Agents: N/A Oxytocin: N/A Group B Beta Strep: Negative Antibiotics # of Doses: 0 Steroids Given: None Reason Steroids Not Administered: Not Applicable MEMBRANES Membranes Rupture Method: Spontaneous Rupture of Membranes: 05/23/2018 08:45 Length of Rupture (hr): 5.98 Amniotic Fluid Color: Clear Amniotic Fluid Amount: Small Amniotic Fluid Odor: Normal STAGES OF LABOR Stage 1 hr: 6 Stage 1 min: 0 Stage 2 hr: 0 Stage 2 min: 14 Stage 3 hr: 0 Stage 3 min: 4 Total Time in Labor hr: 6 Total Time in Labor min: 18 VAGINAL DELIVERY Episiotomy: None Laceration #1: None Laceration Extension #1: N/A Other Laceration: small hemostatic Rt labial Laceration Repair: Not Applicable Sponge Count Correct: N/A Sharps Count Correct: N/A CSECTION DELIVERY Primary Indication: N/A Secondary Indication: N/A CSection Incidence: N/A Labor: N/A Elective: N/A CSection Incision: N/A BABY A INFORMATION Infant Delivery Date/Time: 05/23/2018 14:44 Method of Delivery: Vaginal Born in Route : No : N/A Forceps: N/A Vacuum Extraction: N/A Shoulder Dystocia : No PRESENTATION/POSITION BABY A Presentation: Cephalic Cephalic Presentation: Vertex Vertex Position: Left Occipital Anterior Breech Presentation: N/A PLACENTA INFORMATION BABY A Placenta Delivery Time : 05/23/2018 14:48 Placenta Method of Delivery: Spontaneous Placenta Status: Delivered SCORES BABY A Heart Rate 1 min: >100 bpm Resp Effort 1 min: Good Cry Reflex Irritability 1 min: Cough or Sneeze or Pulls Away Muscle Tone 1 min: Active Motion Color 1 min: Body [place], Extremities Blue Resuscitation Effort 1 min: Tactile Stimulation SCORE 1 MIN: 9 Heart Rate 5 min: >100 bpm Resp Effort 5 min: Good Cry Reflex Irritability 5 min: Cough or Sneeze or Pulls Away Muscle Tone 5 min: Active Motion Color 5 min: Body [place], Extremities Blue Resuscitation Effort 5 min: Tactile Stimulation SCORE 5 MIN: 9 INFORMATION BABY A Gestational Age at Delivery: 39.1 Gestational Status: Full Term- 39- 40.6 Weeks Outcome : Liveborn Infant Condition : Stable Infant Sex: Female IDENTIFICATION BABY A Verification Date/Time: 05/23/2018 14:44 ID Band Number: [id number] Mother's Name Verified: Yes RN Verifying : nicolette Norwood RN Additional Verifying Personnel: [employer] RN WEIGHT/LENGTH BABY A Infant Birthweight (gm): 3250 Infant Weight (lb): 7 Weight (oz): 3 Infant Length (in): 20.00 Length (cm): 50.80 CORD INFORMATION BABY A No. Cord Vessels: 3 Nuchal Cord : N/A Cord Blood Taken: Yes-For Eval (Mom's Blood Type - or O+) Infant Suction: Mouth; Nose ASSESSMENT BABY A Physical Findings at Delivery: Within Normal Limits Infant Respirations: Appears Normal Skin to Skin: Yes Skin to Skin Time (min): 60 Clerical Stock Inspector/ALS Called : No Infant Care By: T WILLI, RN Transferred To: Nursery BABY B INFORMATION : N/A SIGNATURES Assignment: Kali Ibarra MD Signature: with User ID: [email or web address] : with User ID: [email or web address]
[2018-05-23] MEDS: DOCUSATE SODIUM 100 MG CAPSULE PO SCH (17:35)
[2018-05-23] MEDS: FERROUS SULFATE 325 MG TABLET PO SCH (17:36)
[2018-05-23] MEDS: IBUPROFEN 800 MG TABLET PO SCH (21:22)
[2018-05-24] MEDS: ACETAMINOPHEN WITH CODEINE #3 TABLET PO PRN ×2 (00:09→04:16)
[2018-05-24] MEDS: IBUPROFEN 800 MG TABLET PO SCH ×3 (05:56→22:39)
[2018-05-24 08:13] LABS: HEMATOCRIT 24.8 % (36.0-47.0); MEAN CORPUSCULAR HGB CONC 30.7 g/dL (32.0-36.0); MEAN CORPUSCULAR VOLUME 68 fl (80-97); PLATELET COUNT 173 10^3/uL (150-450); RED BLOOD COUNT 3.62 10^6/uL (3.72-5.28); RED CELL DISTRIBUTION WIDTH 17.8 % (11.5-14.0); WHITE BLOOD COUNT 12.8 10^3/uL (4.0-10.5)
[2018-05-24 08:17] LABS: HEMOGLOBIN 7.6 g/dL (12.0-15.5)
[2018-05-24] MEDS: PRENATAL VITAMIN W DHA CAPSULE PO SCH (09:35)
[2018-05-24] MEDS: SENNOSIDES/DOCUSATE 8.6-50 MG 1 EACH TABLET PO SCH (09:35)
[2018-05-24] MEDS: DOCUSATE SODIUM 100 MG CAPSULE PO SCH ×2 (09:35→17:52)
[2018-05-24] MEDS: FERROUS SULFATE 325 MG TABLET PO SCH ×2 (09:35→17:51)
--- NOTE | 2018-05-24 17:57 | PDOC PROGRESS REPORT ---
Subjective-OB Progress Note for:: 05/24/18 Subjective: 27yo G3 now P2 s/p ppd1. Reports dizziness and extreme fatigue today. States she has barely ambulated because she was not feeling very well. and voiding without difficulty. Denies any other concerns at this time Physical Exam (OB) Vital Signs: Temp Pulse Resp BP Pulse Ox 98.1 F 80 15 113/65 99 05/24/18 07:48 05/24/18 07:48 05/24/18 07:48 05/24/18 07:48 05/24/18 07:48 Intake & Output 05/23/18 05/24/18 05/25/18 06:59 06:59 06:59 Intake Total 320 300 Balance 320 300 Weight 62.6 kg - General General Appearance: Appears well In distress: None - PIH/Pre-Eclampsia Clonus: Negative Headache: Absent Epigastric Pain: No Visual Changes: No - Episiotomy/Laceration Site Condition: N/A - Lochia Lochia Amount: Scant < 10 ml Lochia Color: Rubra/Red - Abdomen Description: Soft Hernia Present: No Fundal Description: Firm, Midline Fundal Height: u/u - u/2 - Respiratory Respiratory Status: No respiratory distress - Extremities Upper extremity: Normal inspection Lower extremities: Normal inspection - Neurological Cognition: Normal Orientation: AAOx4 - Psychological Associated symptoms: Normal affect, Normal mood Objective-Diagnostic Laboratory: 05/24/18 07:28 05/24/18 07:28 WBC 12.8 H RBC 3.62 L Hgb 7.6 L Hct 24.8 L MCV 68 L MCH 21.0 L MCHC 30.7 L RDW 17.8 H Plt Count 173 Assessment and Plan(PN) - Assessment and Plan (1) Qualifiers: Weeks of gestation: 39 weeks Qualified Code(s): Z3A.39 - 39 weeks gestation of Is this a current diagnosis for this admission?: Yes Plan: delivered (2) Normal course Is this a current diagnosis for this admission?: Yes Plan: routine pp care (3) Vaginal delivery Is this a current diagnosis for this admission?: Yes Plan: routine pp care (4) Anemia affecting Qualifiers: Trimester: unspecified trimester Qualified Code(s): O99.019 - Anemia complicating , unspecified trimester Is this a current diagnosis for this admission?: Yes Plan: increase dietary iron, feso4 TID. STAT CBC now, will transfuse one unit of blood at this time. Discussed with Dr. Nixon who is the OB extrusion manager today. - Time Spent with Patient Time with patient: Less than 15 minutes Medications reviewed and adjusted accordingly: Yes - Disposition Anticipated Discharge: Home Within: within 24 hours
[2018-05-24] MEDS ORDERED: DIPHENHYDRAMINE HCL 25 MG CAPSULE PO ONE ×2 (18:00→22:45)
[2018-05-24] MEDS ORDERED: ACETAMINOPHEN 325 MG TABLET PO ONE ×2 (18:00→22:45)
[2018-05-24 18:05] LABS: HEMATOCRIT 26.2 % (36.0-47.0); HEMOGLOBIN 8.1 g/dL (12.0-15.5); MEAN CORPUSCULAR HEMOGLOBIN 21.4 pg (27.0-33.4); MEAN CORPUSCULAR HGB CONC 31.1 g/dL (32.0-36.0); MEAN CORPUSCULAR VOLUME 69 fl (80-97); PLATELET COUNT 193 10^3/uL (150-450); RED BLOOD COUNT 3.81 10^6/uL (3.72-5.28); RED CELL DISTRIBUTION WIDTH 17.3 % (11.5-14.0); WHITE BLOOD COUNT 12.3 10^3/uL (4.0-10.5)
[2018-05-25] MEDS: IBUPROFEN 800 MG TABLET PO SCH (05:41)
[2018-05-25 06:46] LABS: ABSOLUTE EOSINOPHILS # (AUTO) 0.1 10^3/uL (0.0-0.6); ABSOLUTE LYMPHOCYTES (AUTO) 2.1 10^3/uL (0.5-4.7); ABSOLUTE MONOCYTES (AUTO) 1.2 10^3/uL (0.1-1.4); ABSOLUTE NEUT (AUTO) 9.5 10^3/uL (1.7-8.2); BASOPHILS % (AUTO) 0.2 % (0-2); EOSINOPHILS % (AUTO) 0.5 % (0-6); HEMATOCRIT 26.8 % (36.0-47.0); HEMOGLOBIN 8.5 g/dL (12.0-15.5); LYMPHOCYTES % (AUTO) 16.4 % (13-45); MEAN CORPUSCULAR HEMOGLOBIN 22.2 pg (27.0-33.4); MEAN CORPUSCULAR HGB CONC 31.8 g/dL (32.0-36.0); MEAN CORPUSCULAR VOLUME 70 fl (80-97); PLATELET COUNT 156 10^3/uL (150-450); RED BLOOD COUNT 3.83 10^6/uL (3.72-5.28); RED CELL DISTRIBUTION WIDTH 17.6 % (11.5-14.0); SEGMENTED NEUTROPHILS % (AUTO) 73.9 % (42-78); TOTAL CELLS COUNTED % (AUTO) 100 %; WHITE BLOOD COUNT 12.8 10^3/uL (4.0-10.5)
--- NOTE | 2018-05-25 09:02 | PDOC PROGRESS REPORT ---
Subjective-OB Progress Note for:: 05/25/18 Subjective: Hsb in room with pt, doing better, no c/o, eating well, ambulating Physical Exam (OB) Vital Signs: Temp Pulse Resp BP Pulse Ox 98.3 F 73 16 121/77 99 05/25/18 07:57 05/25/18 07:57 05/25/18 07:57 05/25/18 07:57 05/25/18 07:57 Intake & Output 05/24/18 05/25/18 05/26/18 06:59 06:59 06:59 Intake Total 320 650 Balance 320 650 Weight 62.6 kg - PIH/Pre-Eclampsia DTR's: 1 + Clonus: Negative Headache: Present Epigastric Pain: No Visual Changes: No - Lochia Lochia Amount: Scant < 10 ml Lochia Color: Rubra/Red - Abdomen Description: Tender, Soft, Round Hernia Present: No Fundal Description: Firm, Midline Fundal Height: u/u - u/2 Objective-Diagnostic Laboratory: 05/25/18 06:30 05/23/18 05/24/18 05/25/18 09:12 17:34 06:30 WBC 12.3 H 12.8 H RBC 3.81 3.83 Hgb 8.1 L 8.5 L Hct 26.2 L 26.8 L MCV 69 L 70 L MCH 21.4 L 22.2 L MCHC 31.1 L 31.8 L RDW 17.3 H 17.6 H Plt Count 193 156 Seg Neutrophils % 73.9 Lymphocytes % 16.4 Monocytes % 9.0 Eosinophils % 0.5 Basophils % 0.2 Absolute Neutrophils 9.5 H Absolute Lymphocytes 2.1 Absolute Monocytes 1.2 Absolute Eosinophils 0.1 Absolute Basophils 0.0 Blood Type O POSITIVE Antibody Screen NEGATIVE Assessment and Plan(PN) - Assessment and Plan (1) Gestational diabetes mellitus Qualifiers: Gestational diabetes mellitus control: diet-controlled Is this a current diagnosis for this admission?: Yes (2) Blood transfusion during current hospitalisation Is this a current diagnosis for this admission?: Yes (3) Vaginal delivery Is this a current diagnosis for this admission?: Yes (4) Anemia affecting Qualifiers: Trimester: unspecified trimester Qualified Code(s): O99.019 - Anemia complicating , unspecified trimester Is this a current diagnosis for this admission?: Yes - Time Spent with Patient Time with patient: Less than 15 minutes Medications reviewed and adjusted accordingly: Yes - Disposition Anticipated Discharge: Home Within: Other - home today
--- NOTE | 2018-05-25 09:05 | PDOC DISCHARGE SUMMARY ---
Final Diagnosis Discharge Date: 05/25/18 - Final Diagnosis (1) Gestational diabetes mellitus Is this a current diagnosis for this admission?: Yes (2) Blood transfusion during current hospitalisation Is this a current diagnosis for this admission?: Yes (3) Vaginal delivery Is this a current diagnosis for this admission?: Yes (4) Anemia affecting Is this a current diagnosis for this admission?: Yes Discharge Data - Discharge Medication Prescriptions: Ferrous Sulfate [Feosol 325 mg Tablet] 325 mg PO BID #60 tablet Home Medications: No122/Iron/Folic Acid [ Multi Tablet] 1 each PO DAILY 03/20/18 Ferrous Sulfate [Feosol 325 mg Tablet] 325 mg PO BID #60 tablet 05/25/18 Vit/Dha [ Multi + Dha Capsule] 1 cap PO DAILY capsule Gestational Age: 39.1 Reason(s) for Admission: Onset of Labor, PROM, Gestional Diabetes Procedures: NST, Ultrasound Intrapartum Procedure(s): Spontaneous Vaginal Delivery Complication(s): Laceration-Labial - Data Baby 1 Female Home with Mother: Yes Complications: No - Diagnosis Test Laboratory: Temp Pulse Resp BP Pulse Ox 98.3 F 73 16 121/77 99 05/25/18 07:57 05/25/18 07:57 05/25/18 07:57 05/25/18 07:57 05/25/18 07:57 05/23/18 05/23/18 05/24/18 08:30 09:12 07:28 RBC 3.92 3.62 L Hgb 8.3 L 7.6 L Hct 26.6 L 24.8 L Urine Opiates Screen NEGATIVE 05/24/18 05/25/18 17:34 06:30 RBC 3.81 3.83 Hgb 8.1 L 8.5 L Hct 26.2 L 26.8 L Urine Opiates Screen - Discharge information/Instructions Discharge Activity: Activity As Tolerated, No Lifting Over 10 Pounds, No Lifting /Push/Pulling, Pelvic Rest Discharge Diet: As Tolerated, Regular Disposition: HOME, SELF-CARE Follow up with: [facility] in: 1, Weeks
[2018-05-25] MEDS: DOCUSATE SODIUM 100 MG CAPSULE PO SCH (10:29)
[2018-05-25] MEDS: PRENATAL VITAMIN W DHA CAPSULE PO SCH (10:29)
[2018-05-25] MEDS: SENNOSIDES/DOCUSATE 8.6-50 MG 1 EACH TABLET PO SCH (10:29)
[2018-05-25] MEDS: FERROUS SULFATE 325 MG TABLET PO SCH (10:29)
[2018-05-25] MEDS: (PENDING PHARMACY ID) (Prenatal No122/Iron/Folic Acid [Prenatal Multi Tablet] 1 EACH) PO SCH (10:32)
[2018-05-25 11:20] VITALS: BP 133/75
== END 2018-05-25 13:08 | disposition home or self-care (01) | DRG 807 ==
LOC: LC 08:14 → LR 08:53 → 2S 17:25
PROVIDERS: ADMIT Obstetrics & Gynecology; ATTEND Obstetrics & Gynecology
PROC: 10E0XZZ Delivery of Products of Conception, External Approach (ICD-10-PCS; principal; 2018-05-23)
PROC: 4A1HXCZ Monitoring of Products of Conception, Cardiac Rate, External Approach (ICD-10-PCS; 2018-05-23)
PROC: 30233N1 Transfusion of Nonautologous Red Blood Cells into Peripheral Vein, Percutaneous Approach (ICD-10-PCS; 2018-05-24)
DX: O24.420 Gestational diabetes mellitus in childbirth, diet controlled (principal); O99.02 Anemia complicating childbirth; D64.9 Anemia, unspecified; Z3A.39 39 weeks gestation of pregnancy; Z37.0 Single live birth
CPT/HCPCS: 36415; 36430; 80307; 85025; 85027; 86592; 86850; 86900; 86901; 86920; J2370; J2590; J3010; J3490; P9016

== ENCOUNTER 2019-03-25 12:23 | Emergency (ER) | payer SELFPAY ==
[2019-03-25 12:33] VITALS: BP 131/79
[2019-03-25] MEDS ORDERED: ACETAMINOPHEN 325 MG TABLET PO ONE (13:36)
--- NOTE | 2019-03-25 13:40 | ER Document Report ---
ED Medical Screen (RME) - General Chief Complaint: Flank Pain Stated Complaint: FLANK PAIN Time Seen by Provider: 03/25/19 13:31 Primary Care Provider: MELONIE ALVAREZ MD [Primary Care Provider] - Follow up as needed Notes: Patient is a 28-year-old female who presents the emergency department with a chief complaint of dysuria, flank pain, and lower abdominal pain. She states that she has had cramping for the past 5 days and her dysuria for the past 2 days. Her last menstrual cycle was a month and a half ago. She said she took tests at home, but they were all negative. Patient is G3, P2. Her last bowel movement was this morning and was normal. Patient states that she feels like she has a urinary tract infection and has been taking Azo for the past couple of days, but continues to have dysuria. Exam: Tender mid lower abdomen. I have greeted and performed a rapid initial assessment of this patient. A comprehensive ED assessment and evaluation of the patient, analysis of test results and completion of medical decision making process will be conducted by an additional ED providers. TRAVEL OUTSIDE OF THE [place] 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 Renal/ Medical History: Denies: Hx Peritoneal Dialysis Psychiatric Medical History: Denies: Hx Depression - Immunizations Immunizations up to date: Yes Hx Diphtheria, Pertussis, Tetanus Vaccination: Yes History of Influenza Vaccine for 05/2017 - 10/2017 Season: Refused Physical Exam - Vital signs Vitals: Temp Pulse Resp BP Pulse Ox 98.2 F 98 14 131/79 H 98 03/25/19 12:31 03/25/19 12:31 03/25/19 12:03/25/19 12:31 03/25/19 12:31 Course - Vital Signs Vital signs: Temp Pulse Resp BP Pulse Ox 98.2 F 98 14 131/79 H 98 03/25/19 12:31 03/25/19 12:31 03/25/19 12:31 03/25/19 12:03/25/19 12:31 Doctor's Discharge - Discharge Referrals: MELONIE ALVAREZ MD [Primary Care Provider] - Follow up as needed
[2019-03-25 14:15] LABS: APPEARANCE,URINE SLIGHTLY-CLOUDY; BILIRUBIN,URINE SMALL (NEGATIVE); COLOR,URINE AMBER; GLUCOSE, URINE NEGATIVE (NEGATIVE); KETONES,URINE TRACE mg/dL (NEGATIVE); LEUKOCYTE ESTERASE,URINE NEGATIVE (NEGATIVE); NITRITE,URINE NEGATIVE (NEGATIVE); PROTEIN,URINE 30 mg/dL (NEGATIVE); URINE SPECIFIC GRAVITY 1.036
[2019-03-25 14:48] LABS: ABSOLUTE LYMPHOCYTES (AUTO) 1.4 10^3/uL (0.5-4.7); ABSOLUTE MONOCYTES (AUTO) 0.4 10^3/uL (0.1-1.4); BASOPHILS % (AUTO) 0.5 % (0-2); EOSINOPHILS % (AUTO) 0.6 % (0-6); HEMATOCRIT 38.7 % (36.0-47.0); HEMOGLOBIN 12.5 g/dL (12.0-15.5); LYMPHOCYTES % (AUTO) 37.8 % (13-45); MEAN CORPUSCULAR HEMOGLOBIN 26.7 pg (27.0-33.4); MEAN CORPUSCULAR HGB CONC 32.4 g/dL (32.0-36.0); MEAN CORPUSCULAR VOLUME 83 fl (80-97); MONOCYTES % (AUTO) 9.3 % (3-13); PLATELET COUNT 206 10^3/uL (150-450); RED BLOOD COUNT 4.69 10^6/uL (3.72-5.28); RED CELL DISTRIBUTION WIDTH 15.6 % (11.5-14.0); SEGMENTED NEUTROPHILS % (AUTO) 51.8 % (42-78); TOTAL CELLS COUNTED % (AUTO) 100 %; WHITE BLOOD COUNT 3.8 10^3/uL (4.0-10.5)
[2019-03-25] MEDS ORDERED: NORMAL SALINE 1000 ML 1,000 ML IV ONE (14:59)
--- NOTE | 2019-03-25 15:04 | ER Document Report ---
ED GI/ - General Chief Complaint: Flank Pain Stated Complaint: FLANK PAIN Time Seen by Provider: 03/25/19 13:31 Primary Care Provider: [facility] [Provider Group] - Follow up as needed Notes: Patient is a 28-year-old female who presents to the emergency department with a chief complaint of urinary pain for 2 days. Patient states she started taking Azo which did initially help but now she continues to have the discomfort. Patient denies vaginal bleeding or discharge. Patient states 2 days ago she did have some vaginal spotting like she was going to start her menstrual cycle but she did not. Patient states her last menstrual. Was 1.5 months ago. Patient states she is sexually active and is not on control. Patient reports nausea. Patient denies vomiting or diarrhea. Patient reports she is having lower abdominal discomfort that feels like her menstrual cycle cramps. Patient is a G3, P2. Patient states she did have her last child in May and just recently quit breast-feeding. TRAVEL OUTSIDE OF THE [place] IN LAST 30 DAYS: No COUNTRY TRAVELED TO/FROM: [facility] - Related Data Allergies/Adverse Reactions: No Known Allergies Allergy (Verified 03/25/19 12:23) Past Medical History - General Information source: Patient - Social History Smoking Status: Former Smoker Frequency of alcohol use: Occasional Drug Abuse: None Lives with: Spouse/Significant other Family History: DM, Hypertension Patient has suicidal ideation: No Patient has homicidal ideation: No - Past Medical History Cardiac Medical History: Reports: Hx Hypertension - Turn Pulmonary Medical History: Reports: None EENT Medical History: Reports: None Neurological Medical History: 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 Denies: Hx Peritoneal Dialysis Malignancy Medical History: Reports: None GI Medical History: Reports: None Musculoskeletal Medical History: Reports None Skin Medical History: Reports None Psychiatric Medical History: Reports: None Denies: Hx Depression Traumatic Medical History: Reports: None Infectious Medical History: Reports: None Surgical Hx: Negative - Immunizations Immunizations up to date: Yes Hx Diphtheria, Pertussis, Tetanus Vaccination: Yes Review of Systems - Review of Systems Constitutional: No symptoms reported EENT: No symptoms reported Cardiovascular: No symptoms reported Respiratory: No symptoms reported Gastrointestinal: See HPI Genitourinary: See HPI Female Genitourinary: See HPI Musculoskeletal: No symptoms reported Skin: No symptoms reported Hematologic/Lymphatic: No symptoms reported Neurological/Psychological: No symptoms reported Physical Exam - Vital signs Vitals: Temp Pulse Resp BP Pulse Ox 98.2 F 98 14 131/79 H 98 03/25/19 12:31 03/25/19 12:31 03/25/19 12:31 03/25/19 12:31 03/25/19 12:31 Interpretation: Normal - Notes Notes: GENERAL: Well-appearing, well-nourished and in no acute distress. HEAD: Atraumatic, normocephalic. EYES: Pupils equal round and reactive to light, extraocular movements intact, sc kristine anicteric, conjunctiva are normal. ENT: Nares patent, oropharynx clear without exudates. Moist mucous membranes. NECK: Normal range of motion, supple without lymphadenopathy or JVD. LUNGS: Breath sounds clear to auscultation bilaterally and equal. No wheezes rales or rhonchi. HEART: Regular rate and rhythm without murmurs, rubs or gallops. ABDOMEN: Soft, low abdominal tenderness with suprapubic tenderness, normoactive bowel sounds. No guarding, no rebound. No masses appreciated. BACK: No cervical, thoracic, lumbar midline tenderness. No saddle anesthesia, normal distal neurovascular exam. No CVA tenderness. GENITOURINARY: Deferred. EXTREMITIES: Normal range of motion, no pitting or edema. No clubbing or cyanosis. NEUROLOGICAL: Cranial nerves II through XII grossly intact. Normal speech, normal gait. PSYCH: Normal mood, normal affect. SKIN: Warm, Dry, normal turgor, no rashes or lesions noted. Course - Re-evaluation Re-evalutation: 03/25/19 15:03 Patient specific gravity is slightly elevated. I will give patient IV fluids. Will obtain a pelvic examination with specimens as the patient is have dysuria but no obvious infection in the urine. hCG quant is pending. 03/25/19 15:50 Patient's IV was causing extreme discomfort. I did remove the IV upon patient's request. Patient states that she will drink liquids as she does not want to get stuck again for an IV. Patient has not had any vomiting. I did inform the patient I feel comfortable with her drinking p.o. fluids. I did inform the patient that her blood work was negative for . Patient states she does not understand why she is late on her. As this is not normal for her. I did tell the patient this could be due to alteration in the hormones, stress. I did inform the patient to follow-up with her SENIOR COPYWRITER this week if she is concerned it does not start her period. Patient states she does go to [facility]. 03/25/19 16:33 I did discuss the results of the pelvic examination with the patient. I did reevaluate the abdomen. Patient is generally tender throughout the whole lower abdomen with palpation. Patient also did have some epigastric tenderness. I did offer an ultrasound to rule out ovarian torsion, abnormality of the uterus. Patient states she would like to go forward with receiving the ultrasound. If the ultrasound is normal I will refer the patient to [facility] as the patient is concerned that she has not started her menstrual cycle. Patient given strict return precautions. 03/25/19 17:53 The patient's ultrasound was negative for any acute abnormality. Patient to follow-up with [facility] and to return if her symptoms worsen or change. - Vital Signs Vital signs: Temp Pulse Resp BP Pulse Ox 98.2 F 98 14 131/79 H 98 03/25/19 12:31 03/25/19 12:31 03/25/19 12:31 03/25/19 12:31 03/25/19 12:31 - Laboratory Result Diagrams: 03/25/19 14:31 03/25/19 14:31 Laboratory results interpreted by me: 03/25/19 03/25/19 13:53 14:31 WBC 3.8 L MCH 26.7 L RDW 15.6 H Urine Protein 30 H Urine Ketones TRACE H Urine Bilirubin SMALL H Urine Urobilinogen 2.0 H Urine Ascorbic Acid 40 H 03/25/19 15:11 She does not have a leukocytosis, anemia, alteration in electrolytes or kidney f unction, alteration or abnormality in the liver function. Patient does have a elevated specific gravity with trace ketones. IV fluids have been initiated. Patient has a negative hCG. Laboratory 03/25/19 03/25/19 03/25/19 13:53 14:31 14:31 WBC 3.8 L RBC 4.69 Hgb 12.5 Hct 38.7 MCV 83 MCH 26.7 L MCHC 32.4 RDW 15.6 H Plt Count 206 Seg Neutrophils % 51.8 Lymphocytes % 37.8 Monocytes % 9.3 Eosinophils % 0.6 Basophils % 0.5 Absolute Neutrophils 2.0 Absolute Lymphocytes 1.4 Absolute Monocytes 0.4 Absolute Eosinophils 0.0 Absolute Basophils 0.0 Sodium 139.4 Potassium 4.1 Chloride 105 Carbon Dioxide 27 Anion Gap 7 BUN 11 Creatinine 0.69 Est GFR ( Amer) > 60 Est GFR (Non-Af Amer) > 60 Glucose 89 Calcium 10.0 Total Bilirubin 0.6 Direct Bilirubin 0.2 Neonat Total Bilirubin Not Reportable Neonat Direct Bilirubin Not Reportable Neonat Indirect Bili Not Reportable AST 20 ALT 11 Alkaline Phosphatase 56 Total Protein 8.1 Albumin 4.7 Serum HCG, Qual Urine Color JAROD Urine Appearance SLIGHTLY-CLOUDY Urine pH 5.0 Ur Specific [place] 1.036 Urine Protein 30 H Urine Glucose (UA) NEGATIVE Urine Ketones TRACE H Urine Blood NEGATIVE Urine Nitrite NEGATIVE Urine Bilirubin SMALL H Urine Urobilinogen 2.0 H Ur Leukocyte Esterase NEGATIVE Urine WBC (Auto) 3 Urine RBC (Auto) 2 Squamous Epi Cells Auto 5 Urine Mucus (Auto) MANY Urine Ascorbic Acid 40 H 03/25/19 14:31 WBC RBC Hgb Hct MCV MCH MCHC RDW Plt Count Seg Neutrophils % Lymphocytes % Monocytes % Eosinophils % Basophils % Absolute Neutrophils Absolute Lymphocytes Absolute Monocytes Absolute Eosinophils Absolute Basophils Sodium Potassium Chloride Carbon Dioxide Anion Gap BUN Creatinine Est GFR ( Amer) Est GFR (Non-Af Amer) Glucose Calcium Total Bilirubin Direct Bilirubin Neonat Total Bilirubin Neonat Direct Bilirubin Neonat Indirect Bili AST ALT Alkaline Phosphatase Total Protein Albumin Serum HCG, Qual NEGATIVE Urine Color Urine Appearance Urine pH Ur Specific [place] Urine Protein Urine Glucose (UA) Urine Ketones Urine Blood Urine Nitrite Urine Bilirubin Urine Urobilinogen Ur Leukocyte Esterase Urine WBC (Auto) Urine RBC (Auto) Squamous Epi Cells Auto Urine Mucus (Auto) Urine Ascorbic Acid - Diagnostic Test Radiology results interpreted by me: 03/25/19 17:53 Transvaginal US 03/25/19 16:33 IMPRESSION: Age-appropriate exam. Procedures - Pelvic Exam Pelvic exam Time completed: 15:45 Cultures obtained: Yes Wet prep obtained: Yes Bimanual exam performed: Yes Witnessed by: Laura PERALTA Notes: 03/25/19 15:48 External genitalia is unremarkable without erythema, edema or lesions. Patient tolerated the insertion of the speculum fairly well as she did report some pain. Patient states normally when she has a pelvic examination or sexual intercourse she does have pain so this is not new for her. I was able to visualize the c ervix which is closed, there was a small amount of clear/white vaginal discharge. Bimanual examination was performed with minimal tenderness. Patient states this is not a new tenderness with her pelvic examinations. Discharge - Discharge Clinical Impression: Pelvic pain, Dysuria Condition: Stable Disposition: HOME, SELF-CARE Additional Instructions: Today you were seen in the emergency department for pelvic pain. Your urinalysis, blood work and ultrasound were negative. I am unsure as to why you are not starting her. Since you are blood work was negative for . Please follow-up with your S[facility]YWRITER at [facility]. Please return to the emergency department if the pain becomes more severe in the specific area, you develop vomiting or blood in the vomit or stool, fever or any other concerning signs or symptoms. Pelvic Pain There are many causes of pain in the pelvic area. The cause could be the tubes, ovaries, uterus, intestines, appendix, pelvic muscles and connective tissue, or the urinary tract. The cause of your pelvic pain is not clear. However, it seems safe to treat you outside the hospital. If the pain sounds like a temporary problem, we sometimes wait to see if it goes away. Other patients may need additional tests, such as pelvic ultrasound or cultures. Conditions may change. Call us or come back for reexamination if any problems occur, such as: (1) Pain that becomes more severe, steady, or becomes concentrated in one specific area. Also, pain that is more severe with movement or coughing. (2) Vomiting that persists or becomes more frequent. (3) Blood in the vomitus, urine, or bowel movements. Blood in the stool may have a tarry or black appearance. (4) Shaking chills or fever greater than 100 degrees. (5) The abdomen becomes more distended or swollen. (6) Bowel movements cease. (7) Heavy vaginal bleeding. Referrals: [facility] [Provider Group] - Follow up as needed
[2019-03-25 15:09] LABS: ALBUMIN 4.7 g/dL (3.5-5.0); ALKALINE PHOSPHATASE 56 U/L (38-126); ANION GAP 7 (5-19); ASPARTATE AMINO TRANSFERASE 20 U/L (14-36); BILIRUBIN,DIRECT 0.2 mg/dL (0.0-0.4); BILIRUBIN,TOTAL 0.6 mg/dL (0.2-1.3); BLOOD UREA NITROGEN 11 mg/dL (7-20); CARBON DIOXIDE 27 mmol/L (22-30); CHLORIDE 105 mmol/L (98-107); GLUCOSE 89 mg/dL (75-110); POTASSIUM 4.1 mmol/L (3.6-5.0); TOTAL PROTEIN 8.1 g/dL (6.3-8.2)
[2019-03-25 15:55] LABS: T.VAGINALIS (WET MOUNT) NO TRICHOMONAS SEEN; YEAST (WET MOUNT) NO YEAST SEEN
[2019-03-25 15:56] LABS: WBCS (WET MOUNT) RARE WBCS SEEN
[2019-03-25 17:27] LABS: CHLAM PCR NOT DETECTED (NOT DETECT)
--- NOTE | 2019-03-25 17:47 | RADIOLOGY REPORT (SQ) ---
EXAM DESCRIPTION: U/S NON OB PEL TV W/DOPPLER COMPLETED DATE/TIME: 03/25/2019 5:22 pm REASON FOR STUDY: pelvic pain COMPARISON: None. TECHNIQUE: Dynamic and static grayscale images acquired of the pelvis via transvaginal approach and recorded on PACS. Additional selected color Doppler and spectral images recorded. LIMITATIONS: None. FINDINGS: UTERUS: Contour normal. No mass. ENDOMETRIAL STRIPE: No focal or generalized thickening. No masses. CERVIX: No nabothian cysts. RIGHT OVARY AND DOPPLER: Normal size. No worrisome masses. Normal arterial vascular flow without evid ence for torsion. LEFT OVARY AND DOPPLER: Normal size. No worrisome masses. Normal arterial vascular flow without evide nce for torsion. FREE FLUID: None noted. OTHER: No other significant finding. MEASUREMENTS: UTERUS: 7.6 x 4.3 x 3.8 cm ENDOMETRIAL STRIPE: 6 mm RIGHT OVARY: 3.2 x 1.8 x 1.5 cm LEFT OVARY: 2.5 x 1.5 x 1.3 cm IMPRESSION: Age-appropriate exam. TECHNICAL DOCUMENTATION: JOB ID: [id number] 2010 [employer]- All Rights Reserved Rev-01/06 Reading location - IP/workstation name: [email or web address]
== END 2019-03-25 18:30 | disposition home or self-care (01) ==
LOC: ER 12:23
DX: R10.2 Pelvic and perineal pain (principal); R30.0 Dysuria; R11.0 Nausea; Z87.891 Personal history of nicotine dependence
CPT/HCPCS: 99284; 96360; 36415; 87210; 84703; 85025; 80053; 81001; 87491; 87591; 76830; 93976; J7030

== ENCOUNTER 2019-07-17 11:45 | Emergency (ER) | payer SELFPAY ==
[2019-07-17] MEDS ORDERED: ONDANSETRON HCL INJ/PF 4 MG/2 ML SDV IV ONE ×2 (12:07→13:38)
[2019-07-17] MEDS ORDERED: NORMAL SALINE 1000 ML 1,000 ML IV ONE ×2 (12:07→13:49)
[2019-07-17] MEDS ORDERED: ACETAMINOPHEN 325 MG TABLET PO ONE (12:08)
--- NOTE | 2019-07-17 12:09 | ER Document Report ---
ED Medical Screen (RME) - General Chief Complaint: Abdominal Pain Stated Complaint: ABDOMINAL PAIN Time Seen by Provider: 07/17/19 12:07 Information source: Patient Notes: Patient presents complaining of left lateral side pain with nausea and vomiting. Patient states she is not able to have a bowel movement or pass gas for the past week. Patient also complains of abscesses to the right axilla. I have greeted and performed a rapid initial assessment of this patient. A comprehensive ED assessment and evaluation of the patient, analysis of test results and completion of the medical decision making process will be conducted by additional ED providers. TRAVEL OUTSIDE OF THE [place] 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 Renal/ Medical History: Denies: Hx Peritoneal Dialysis Psychiatric Medical History: Denies: Hx Depression - Immunizations Immunizations up to date: Yes Hx Diphtheria, Pertussis, Tetanus Vaccination: Yes Physical Exam - Vital signs Vitals: Temp Pulse Resp BP Pulse Ox 100.7 F H 106 H 16 120/77 91 L 07/17/19 11:57 07/17/19 11:57 07/17/19 11:57 07/17/19 11:57 07/17/19 11:57 - Abdominal Tenderness: Tender - Left lower quadrant, left lateral side tenderness Course - Vital Signs Vital signs: Temp Pulse Resp BP Pulse Ox 100.7 F H 106 H 16 120/77 91 L 07/17/19 11:57 07/17/19 11:57 07/17/19 11:57 07/17/19 11:57 07/17/19 11:57
[2019-07-17 13:17] LABS: ABSOLUTE LYMPHOCYTES (AUTO) 0.9 10^3/uL (0.5-4.7); ABSOLUTE MONOCYTES (AUTO) 1.5 10^3/uL (0.1-1.4); BASOPHILS % (AUTO) 0.3 % (0-2); HEMATOCRIT 35.3 % (36.0-47.0); HEMOGLOBIN 11.6 g/dL (12.0-15.5); LYMPHOCYTES % (AUTO) 9.1 % (13-45); MEAN CORPUSCULAR HEMOGLOBIN 27.1 pg (27.0-33.4); MEAN CORPUSCULAR HGB CONC 32.9 g/dL (32.0-36.0); MEAN CORPUSCULAR VOLUME 82 fl (80-97); MONOCYTES % (AUTO) 16.3 % (3-13); PLATELET COUNT 204 10^3/uL (150-450); RED BLOOD COUNT 4.29 10^6/uL (3.72-5.28); RED CELL DISTRIBUTION WIDTH 14.2 % (11.5-14.0); SEGMENTED NEUTROPHILS % (AUTO) 74.3 % (42-78); TOTAL CELLS COUNTED % (AUTO) 100 %; WHITE BLOOD COUNT 9.4 10^3/uL (4.0-10.5)
[2019-07-17 13:25] LABS: APPEARANCE,URINE CLOUDY; BILIRUBIN,URINE NEGATIVE (NEGATIVE); GLUCOSE, URINE NEGATIVE (NEGATIVE); KETONES,URINE TRACE mg/dL (NEGATIVE); PROTEIN,URINE 100 mg/dL (NEGATIVE); URINE SPECIFIC GRAVITY 1.018
[2019-07-17 13:28] LABS: COLOR,URINE DARK YELLOW
[2019-07-17 13:46] LABS: ALBUMIN 4.4 g/dL (3.5-5.0); ALKALINE PHOSPHATASE 127 U/L (38-126); ANION GAP 15 (5-19); ASPARTATE AMINO TRANSFERASE 35 U/L (14-36); BILIRUBIN,DIRECT 0.3 mg/dL (0.0-0.4); BILIRUBIN,TOTAL 0.7 mg/dL (0.2-1.3); BLOOD UREA NITROGEN 7 mg/dL (7-20); CALCIUM 9.4 mg/dL (8.4-10.2); CARBON DIOXIDE 26 mmol/L (22-30); CHLORIDE 97 mmol/L (98-107); GLUCOSE 104 mg/dL (75-110); POTASSIUM 3.6 mmol/L (3.6-5.0); TOTAL PROTEIN 8.3 g/dL (6.3-8.2)
--- NOTE | 2019-07-17 13:49 | ER Document Report ---
ED GI/ - General Chief Complaint: Abdominal Pain Stated Complaint: ABDOMINAL PAIN Time Seen by Provider: 07/17/19 12:07 Mode of Arrival: Ambulatory Information source: Patient Notes: Patient presents complaining of left lateral side pain with nausea and vomiting. Patient states she is not able to have a bowel movement or pass gas for the past week. Patient also complains of abscesses to the right axilla. TRAVEL OUTSIDE OF THE [place] 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 Renal/ Medical History: Denies: Hx Peritoneal Dialysis Psychiatric Medical History: Denies: Hx Depression - Immunizations Immunizations up to date: Yes Hx Diphtheria, Pertussis, Tetanus Vaccination: Yes Review of Systems - Review of Systems Constitutional: No symptoms reported EENT: No symptoms reported Cardiovascular: No symptoms reported Respiratory: No symptoms reported Gastrointestinal: No symptoms reported Genitourinary: See HPI Female Genitourinary: No symptoms reported Musculoskeletal: No symptoms reported Skin: See HPI Hematologic/Lymphatic: No symptoms reported Neurological/Psychological: No symptoms reported Physical Exam - Vital signs Vitals: Temp Pulse Resp BP Pulse Ox 100.7 F H 106 H 16 120/77 91 L 07/17/19 11:57 07/17/19 11:57 07/17/19 11:57 07/17/19 11:57 07/17/19 11:57 - Notes Notes: PHYSICAL EXAMINATION: GENERAL: Well-appearing, well-nourished and in no acute distress. HEAD: Atraumatic, normocephalic. EYES: Pupils equal round and reactive to light, extraocular movements intact, conjunctiva are normal. ENT: Nares patent, oropharynx clear without exudates. Moist mucous membranes. NECK: Normal range of motion, supple without lymphadenopathy LUNGS: Breath sounds clear to auscultation bilaterally and equal. No wheezes rales or rhonchi. HEART: Regular rate and rhythm without murmurs ABDOMEN: Soft, nontender, nondistended abdomen. No guarding, no rebound. No masses appreciated. Female : deferred Musculoskeletal: Normal range of motion, no pitting or edema. No cyanosis. NEUROLOGICAL: Cranial nerves grossly intact. Normal speech, normal gait. Normal sensory, motor exams PSYCH: Normal mood, normal affect. SKIN: Area of induration, erythema and fluctuance to right axilla. Course - Re-evaluation Re-evalutation: Microbiology 07/17/19 12:56 Blood Culture - Preliminary Blood NO GROWTH AFTER 72 HOURS Laboratory 07/17/19 07/17/19 07/17/19 12:56 12:56 12:56 WBC 9.4 RBC 4.29 Hgb 11.6 L Hct 35.3 L MCV 82 MCH 27.1 MCHC 32.9 RDW 14.2 H Plt Count 204 Lymph % (Auto) 9.1 L Davis % (Auto) 16.3 H Eos % (Auto) 0.0 Baso % (Auto) 0.3 Absolute Neuts (auto) 7.0 Absolute Lymphs (auto) 0.9 Absolute Monos (auto) 1.5 H Absolute Eos (auto) 0.0 Absolute Basos (auto) 0.0 Seg Neutrophils % 74.3 Sodium 137.9 Potassium 3.6 Chloride 97 L Carbon Dioxide 26 Anion Gap 15 BUN 7 Creatinine 0.88 Est GFR ( Amer) > 60 Est GFR (MDRD) Non-Af > 60 Glucose 104 Calcium 9.4 Total Bilirubin 0.7 Direct Bilirubin 0.3 Neonat Total Bilirubin Not Reportable Neonat Direct Bilirubin Not Reportable Neonat Indirect Bili Not Reportable AST 35 ALT 40 Alkaline Phosphatase 127 H Total Protein 8.3 H Albumin 4.4 Lipase 22.0 L Serum HCG, Qual NEGATIVE Urine Color Urine Appearance Urine pH Ur Specific [place] Urine Protein Urine Glucose (UA) Urine Ketones Urine Blood Urine Nitrite (Reflex) Urine Bilirubin Urine Urobilinogen Leukocyte Esterase Rfl Urine RBC (Auto) Urine Bacteria (Auto) Urine WBC (Reflex) Urine WBC Clumps Squamous Epi Cells Auto Urine Mucus (Auto) Urine Ascorbic Acid 07/17/19 12:56 WBC RBC Hgb Hct MCV MCH MCHC RDW Plt Count Lymph % (Auto) Davis % (Auto) Eos % (Auto) Baso % (Auto) Absolute Neuts (auto) Absolute Lymphs (auto) Absolute Monos (auto) Absolute Eos (auto) Absolute Basos (auto) Seg Neutrophils % Sodium Potassium Chloride Carbon Dioxide Anion Gap BUN Creatinine Est GFR ( Amer) Est GFR (MDRD) Non-Af Glucose Calcium Total Bilirubin Direct Bilirubin Neonat Total Bilirubin Neonat Direct Bilirubin Neonat Indirect Bili AST ALT Alkaline Phosphatase Total Protein Albumin Lipase Serum HCG, Qual Urine Color DARK YELLOW Urine Appearance CLOUDY Urine pH 6.0 Ur Specific [place] 1.018 Urine Protein 100 H Urine Glucose (UA) NEGATIVE Urine Ketones TRACE H Urine Blood MODERATE H Urine Nitrite (Reflex) POSITIVE H Urine Bilirubin NEGATIVE Urine Urobilinogen 4.0 H Leukocyte Esterase Rfl LARGE H Urine RBC (Auto) 21 Urine Bacteria (Auto) 3+ Urine WBC (Reflex) > 182 Urine WBC Clumps MOD Squamous Epi Cells Auto 5 Urine Mucus (Auto) MANY Urine Ascorbic Acid NEGATIVE KUB X-Ray 07/17/19 13:38 IMPRESSION: No evidence of intestinal obstruction or other acute intra- abdominal/pelvic process. Unremarkable fecal burden. Abscess drained, pt tolerated well, see procedure note. Patient refused enema. Will be discharged home. - Vital Signs Vital signs: Temp Pulse Resp BP Pulse Ox 98.9 F 84 18 111/64 95 07/17/19 16:30 07/17/19 16:30 07/17/19 16:30 07/17/19 16:30 07/17/19 16:30 - Laboratory Result Diagrams: 07/17/19 12:56 07/17/19 12:56 Laboratory results interpreted by me: 07/17/19 07/17/19 07/17/19 12:56 12:56 12:56 Hgb 11.6 L Hct 35.3 L RDW 14.2 H Lymph % (Auto) 9.1 L Davis % (Auto) 16.3 H Absolute Monos (auto) 1.5 H Chloride 97 L Alkaline Phosphatase 127 H Total Protein 8.3 H Lipase 22.0 L Urine Protein 100 H Urine Ketones TRACE H Urine Blood MODERATE H Urine Nitrite (Reflex) POSITIVE H Urine Urobilinogen 4.0 H Leukocyte Esterase Rfl LARGE H Procedures - Incision and Drainage Right axilla Type: Simple Anesthetic type: 1% Lidocaine Blade size: 11 I&D procedure: Betadine prep applied Incision Method: Incision made by scalpel Discharge - Discharge Clinical Impression: Abscess Urinary tract infection Qualifiers: Urinary tract infection type: site unspecified Hematuria presence: with hematuria Qualified Code(s): N39.0 - Urinary tract infection, site not specified Constipation Qualifiers: Constipation type: unspecified constipation type Qualified Code(s): K59.00 - Constipation, unspecified Condition: Stable Disposition: HOME, SELF-CARE Additional Instructions: Your urine shows findings consistent with a urinary tract infection. Please take all the antibiotics as directed even if your symptoms have improved. Please follow-up with your primary care physician as needed. Return to emergency room if you develop fever >101F, persistent vomiting, become lethargic, have severe pain in your sides, or any other symptoms that are concerning to you. You were seen for an abscess that required drainage. Please clean this area with soap and water twice daily and apply a topical antibiotic. Dress the area after each cleaning. Please return if you develop fever, vomiting, the pain at the site worsens, you notice spreading redness from the area, or you have any other symptoms that are concerning to you. Prescriptions: Sulfamethoxazole/Trimethoprim [Bactrim Ds Tablet] 1 tab PO BID #14 tablet Cephalexin [Keflex] 500 mg PO BID #14 capsule Hydrocodone/Acetaminophen [Milan 5-325 mg Tablet] 1 tab PO Q4H PRN #10 tablet PRN Reason: For Pain Promethazine HCl [Phenergan 25 mg Tablet] 1 tab PO Q6H PRN #15 tablet PRN Reason: Forms: Return to Work
--- NOTE | 2019-07-17 14:39 | RADIOLOGY REPORT (SQ) ---
EXAM DESCRIPTION: KUB/ABDOMEN (SINGLE VIEW) COMPLETED DATE/TIME: 07/17/2019 2:31 pm REASON FOR STUDY: LLQ pain, no BM x1 week COMPARISON: None. NUMBER OF VIEWS: One view. TECHNIQUE: Supine radiographic image of the abdomen acquired. LIMITATIONS: None. FINDINGS: BOWEL GAS PATTERN: Normal bowel gas pattern. No dilated loops. CALCIFICATIONS: No suspicious calcifications. SOFT TISSUES: No gross mass or suggestion of organomegaly. HARDWARE: None in the abdomen. BONES: No acute fracture. No worrisome bone lesions. OTHER: No other significant finding. IMPRESSION: No evidence of intestinal obstruction or other acute intra-abdominal/pelvic process. Un remarkable fecal burden. TECHNICAL DOCUMENTATION: JOB ID: [id number] [employer]- All Rights Reserved Reading location - IP/workstation name: [email or web address]
[2019-07-17] MEDS ORDERED: CEFTRIAXONE 1 GM/D5W RTU 1 GM/50 ML RTUPB IV ONE (14:45)
[2019-07-17] MEDS ORDERED: MAGNESIUM CITRATE 296 ML BOTTLE PO ONE (15:25)
[2019-07-17] MEDS ORDERED: MINERAL OIL ENEMA 133 ML PR ONE (15:26)
[2019-07-17 16:31] VITALS: BP 111/64
== END 2019-07-17 16:36 | disposition home or self-care (01) ==
LOC: ER 11:45
DX: L02.411 Cutaneous abscess of right axilla (principal); N39.0 Urinary tract infection, site not specified; K59.00 Constipation, unspecified; R10.9 Unspecified abdominal pain; R11.2 Nausea with vomiting, unspecified
CPT/HCPCS: 96376; 99284; 96361; 96375; 96365; 36415; 87040; 83690; 84703; 85025; 80053; 81001; 74018; 10060; J3490; J2405; J7030; J0696

== ENCOUNTER 2019-12-08 12:05 | Emergency (ER) | payer SELFPAY ==
[2019-12-08 12:09] VITALS: BP 118/63
--- NOTE | 2019-12-08 12:37 | ER Document Report ---
ED Skin Rash/Insect Bite/Abscs - General Chief Complaint: Abscess Stated Complaint: POSSIBLE ABSCESS Time Seen by Provider: 12/08/19 12:32 Primary Care Provider: [facility] [Provider Group] - Follow up as needed [facility] [Provider Group] - Follow up as needed [facility] [Provider Group] - Follow up as needed [facility] [Provider Group] - Follow up as needed Mode of Arrival: Ambulatory Information source: Patient Notes: 29-year-old female presented to ED for complaint of an swelling draining wound to her right forearm. She states this started about 4 days ago and is gotten larger and more painful. She states since it is not getting better she came to the emergency room to have it examined. TRAVEL OUTSIDE OF THE [place] IN LAST 30 DAYS: No - HPI Patient complains to provider of: Tender/swollen area Onset: Other Onset/Duration: Gradual - 4 days ago Quality of pain: Sharp, Throbbing Severity: Moderate Pain Level: 3 Skin Character: Abscess Quality of rash: Painful Identify cause: Yes - It is started as like a "hair bump " Exacerbated by: Movement Relieved by: Denies Similar symptoms previously: No Recently seen / treated by doctor: No - Related Data Allergies/Adverse Reactions: No Known Allergies Allergy (Verified 03/25/19 12:23) Past Medical History - General Information source: Patient - Social History Smoking Status: Never Smoker Frequency of alcohol use: Occasional Drug Abuse: None 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 Family History: DM, Hypertension - Past Medical History Cardiac Medical History: Reports: Hx Hypertension - Turn Neurological Medical History: 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 Endocrine Medical History: Reports: None Renal/ Medical History: Reports: None Malignancy Medical History: Reports: None GI Medical History: Reports: None Musculoskeletal Medical History: Reports None Skin Medical History: Reports None Psychiatric Medical History: Reports: None Traumatic Medical History: Reports: None Infectious Medical History: Reports: None Surgical Hx: Negative Past Surgical History: Reports: None - Immunizations Immunizations up to date: Yes Hx Diphtheria, Pertussis, Tetanus Vaccination: Yes Review of Systems - Review of Systems Constitutional: No symptoms reported EENT: No symptoms reported Cardiovascular: No symptoms reported Respiratory: No symptoms reported Gastrointestinal: No symptoms reported Genitourinary: No symptoms reported Female Genitourinary: No symptoms reported Musculoskeletal: No symptoms reported Skin: Lesions - Right forearm Hematologic/Lymphatic: No symptoms reported Neurological/Psychological: No symptoms reported -: Yes All other systems reviewed and negative Physical Exam - Vital signs Vitals: Temp Pulse Resp BP Pulse Ox 99.1 F 89 18 118/63 99 12/08/19 12:06 12/08/19 12:06 12/08/19 12:06 12/08/19 12:06 12/08/19 12:06 Interpretation: Normal - General General appearance: Appears well, Alert - HEENT Head: Normocephalic, Atraumatic Eyes: Normal Pupils: PERRL - Respiratory Respiratory status: No respiratory distress Chest status: Nontender Breath sounds: Normal Chest palpation: Normal - Cardiovascular Rhythm: Regular Heart sounds: Normal auscultation Murmur: No - Abdominal Inspection: Normal Distension: No distension Bowel sounds: Normal Tenderness: Nontender Organomegaly: No organomegaly - Back Back: Normal, Nontender - Extremities General upper extremity: Normal color, Normal ROM, Normal temperature General lower extremity: Normal inspection, Nontender, Normal color, Normal ROM, Normal temperature, Normal weight bearing. No: Mitra's sign Forearm: Tender - Abscess to the right forearm - Neurological Neuro grossly intact: Yes Cognition: Normal Orientation: AAOx4 [place] Coma Scale Eye Opening: Spontaneous Krys Coma Scale Verbal: Oriented [place] Coma Scale Motor: Obeys Commands [place] Coma Scale Total: 15 Speech: Normal Motor strength normal: LUE, RUE, LLE, RLE Sensory: Normal - Psychological Associated symptoms: Normal affect, Normal mood - Skin Skin Temperature: Warm Skin Moisture: Dry Skin Color: Normal Skin irregularity: Abscess Location of irregularity: Extremities - Right forearm Irregularity with: Swelling, Tenderness, Warmth Course - Re-evaluation Re-evalutation: 12/08/19 12:37 Abscess is draining at this time will treat with Bactrim and Keflex and discharged home with instructions for soaking and Epson salt. Patient has been instructed to return to the ED immediately if it starts to increase in size pain or drainage. Prescriptions will be sent to her pharmacy of choice. Patient verbalized understanding and agreement treatment plan and patient was discharged home. - Vital Signs Vital signs: Temp Pulse Resp BP Pulse Ox 99.1 F 89 18 118/63 99 12/08/19 12:06 12/08/19 12:06 12/08/19 12:06 12/08/19 12:06 12/08/19 12:06 Discharge - Discharge Clinical Impression: Abscess of right forearm Condition: Stable Disposition: HOME, SELF-CARE Additional Instructions: ABSCESS: You have an abscess (boil). This a pus-forming infection, usually due to staph. Some boils may be left to drain on their own, but most require lancing. From the time the tender lump first appears, it may be three or four days before the abscess is ready to darien. Local heat and rest help at this stage of treatment. An antibiotic may prevent spread of the infection. Once the abscess is opened, packing may be placed into it. This is done so pus is not sealed inside by premature closure of the cavity. The packing will be removed at your follow-up visit or you may be advised to remove it yourself at home. Sometimes this packing must be replaced a few times during healing. The wound will heal with surprisingly little scar. Depending on the size and location of an abscess, healing can take one to four weeks. You may shower and wash the area around the incision site two or three times a day. Antibiotics may be prescribed, but are usually not necessary after an abscess has been drained. If you develop fever, chills, worsening pain, or increasing swelling in the area, call the doctor or return immediately. CEPHALEXIN: The antibiotic you've been prescribed is a member of the cephalosporin class. This type of antibiotic covers a wide variety of infections, including those of the skin, lungs, and urinary tract. It's useful for staph infections. This antibiotic is slightly similar to the penicillin family. In rare cases, a person who is allergic to penicillin will also be allergic to this medication. If you have had a severe allergic reaction to penicillin, and have not taken this antibiotic since that time, notify your doctor. Antibiotics which cover many germs ("broad spectrum" antibiotics) are more likely to cause diarrhea or "yeast" infections. Women prone to vaginal yeast problems may suffer an attack after taking this antibiotic. In infants, oral thrush (white spots "stuck" on the cheek) or yeast diaper rash may result. See your doctor if these problems occur. Call at once if you develop itching, hives, shortness of breath, or lightheadedness. TRIMETHOPRIM-SULFA: You have been given a prescription for trimethoprim-sulfa (TMS, Septra, Bactrim). This is a combination antibiotic of the sulfa class, often used for urinary tract infections, middle ear infections, bronchitis, shigella intestinal infection, and Pneumocystis pneumonia. TMS is usually well-tolerated. Occasional side effects include nausea and decreased appetite. Septra is not recommended for infants less than two months of age. Do not take this medication if you have experienced severe side effects or allergy to sulfa medicine. You should stop this medicine at once and contact your physician if you develop any rash, joint pain, shortness of breath, bruising, or jaundice (yellow color in the skin), or if you develop any other new or unusual symptoms. Epsom Salt Soaks Soak the wound area in a container of warm epsom salt water. If you can't get the wound area into a bucket or jenkins, use a folded towel soaked in the epsom salt solution and apply to the area. Use clean hot tap water (about the temperature of a very warm bath), mixing in about one (1) teaspoon for every pint of water. Two gallon --> 16 teaspoons Epsom Salts One gallon --> 8 teaspoons Epsom Salts Two quarts --> 4 teaspoons Epsom Salts One quart --> 2 teaspoons Epsom Salts Soak the wound for about 20 minutes while gently moving it around in the water. Repeat this four (4) times a day. Acetaminophen Acetaminophen may be taken for pain relief or fever control. It's much safer than aspirin, offering a wider range of "safe" dosages. It is safe during . Some brand names are Tylenol, Panadol, Datril, Anacin 3, Tempra, and Liquiprin. Acetaminophen can be repeated every four hours. The following are maximum recommended dosages: WEIGHT Dose Drops Elixir Chewable(80mg) (LBS.) drprs=droppers tsp=teaspoon 6 40 mg .4 ml (1/2) 6-11 80 mg .8 ml (full) 1/2 tsp 1 tab 12-16 120 mg 1 1/2 drprs 3/4 tsp 1 1/2 tabs 17-23 160 mg 2 drprs 1 tsp 2 tabs 24-30 240 mg 3 drprs 1 1/2 tsp 3 tabs 30-35 320 mg 2 tsp 4 tabs 36-41 360 mg 2 1/4 tsp 4 1/2 tabs 42-47 400 mg 2 1/2 tsp 5 tabs 48-53 480 mg 3 tsp 6 tabs 54-59 520 mg 3 1/4 tsp 6 1/2 tabs 60-64 560 mg 3 1/2 tsp 7 tabs 65-70 600 mg 3 3/4 tsp 7 1/2 tabs 71-76 640 mg 4 tsp 8 tabs 77-82 720 mg 4 1/2 tsp 9 tabs 83-88 800 mg 5 tsp 10 tabs >89 pounds or adults 650 mg to 900 mg Acetaminophen can be repeated every four hours. Maximum daily dose not to exceed 4000 mg. These maximum recommended dosages are slightly higher than the dosages written on the product container, but these dosages are very safe and well below the toxic dosage for acetaminophen. Ibuprofen Ibuprofen is an excellent, safe drug for pain control. In addition, it has potent antiinflammatory effects which are beneficial, especially in the treatment of injuries, arthritis, or tendonitis. It's best to take ibuprofen with food. Persons with ulcer disease or allergy to aspirin should notify their physician of this before taking ibuprofen. Take the medication exactly as prescribed. Don't take additional doses unless instructed to do so by your doctor. If you develop wheezing, shortness of breath, hives, faintness, stomach pain, vomiting, or dark black stools, return for re-evaluation at once. FOLLOW-UP CARE: Most simple abscesses will not require a follow up visit. If you had packing placed in the abscess, remove it as instructed by the physician. If you have been referred to a physician for follow-up care, call the physicians office for an appointment as you were instructed or within the next two days. If you experience worsening or a significant change in your symptoms, return to the Emergency Department at any time for re-evaluation. Prescriptions: Sulfamethoxazole/Trimethoprim [Bactrim Ds Tablet] 1 each PO BID #20 tablet Cephalexin Monohydrate [Keflex 500 mg Capsule] 500 mg PO QID #20 capsule Referrals: [facility] [Provider Group] - Follow up as needed [facility] [Provider Group] - Follow up as needed [facility] [Provider Group] - Follow up as needed [facility] [Provider Group] - Follow up as needed
== END 2019-12-08 12:45 | disposition home or self-care (01) ==
LOC: ER 12:05
DX: L02.413 Cutaneous abscess of right upper limb (principal)
CPT/HCPCS: 87070; 87077; 87186; 87205; 99282

== ENCOUNTER 2019-12-11 15:19 | Emergency (ER) | payer SELFPAY ==
[2019-12-11 15:26] VITALS: BP 113/71
--- NOTE | 2019-12-11 15:42 | ER Document Report ---
ED Suture/Wound Recheck - General Chief Complaint: Wound Recheck Stated Complaint: POSSIBLE ABSESS Time Seen by Provider: 12/11/19 15:32 Mode of Arrival: Ambulatory Information source: Patient Notes: 29-year-old female presented to ED for abscess 2 days ago. The abscess was already open and draining at the time. A wound culture was sent and was per positive for MRSA. He has already been on Bactrim and Keflex which are both good for the infection present on her wound. Wound looks much improved from 2 days ago when I saw her. I have read instructed her on Epson salt antibiotics I have also given her a bottle soap to wash with soap and water before use any Epson salt. Patient has been instructed to please follow-up with 1 of the local doctors. She was provided with several names. TRAVEL OUTSIDE OF THE [place] 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 Family History: DM, Hypertension Patient has suicidal ideation: No Patient has homicidal ideation: No - Past Medical History Cardiac Medical History: Reports: Hx Hypertension - During Pulmonary Medical History: Reports: None EENT Medical History: Reports: None Neurological Medical History: 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 Endocrine Medical History: Reports: None Renal/ Medical History: Reports: None Malignancy Medical History: Reports: None GI Medical History: Reports: None Musculoskeletal Medical History: Reports None Skin Medical History: Reports None Psychiatric Medical History: Reports: None Traumatic Medical History: Reports: None Infectious Medical History: Reports: None Surgical Hx: Negative Past Surgical History: Reports: None - Immunizations Immunizations up to date: Yes Hx Diphtheria, Pertussis, Tetanus Vaccination: Yes Review of Systems - Review of Systems Constitutional: No symptoms reported EENT: No symptoms reported Cardiovascular: No symptoms reported Respiratory: No symptoms reported Gastrointestinal: No symptoms reported Genitourinary: No symptoms reported Female Genitourinary: No symptoms reported Musculoskeletal: No symptoms reported Skin: Other - Healing abscess to right forearm Hematologic/Lymphatic: No symptoms reported Neurological/Psychological: No symptoms reported -: Yes All other systems reviewed and negative Physical Exam - Vital signs Vitals: Temp Pulse Resp BP Pulse Ox 97.9 F 95 17 113/71 97 12/11/19 15:23 12/11/19 15:23 12/11/19 15:23 12/11/19 15:23 12/11/19 15:23 Interpretation: Normal - General General appearance: Appears well, Alert - HEENT Head: Normocephalic, Atraumatic Eyes: Normal Pupils: PERRL - Respiratory Respiratory status: No respiratory distress Chest status: Nontender Breath sounds: Normal Chest palpation: Normal - Cardiovascular Rhythm: Regular Heart sounds: Normal auscultation Murmur: No - Abdominal Inspection: Normal Distension: No distension Bowel sounds: Normal Tenderness: Nontender Organomegaly: No organomegaly - Back Back: Normal, Nontender - Extremities General upper extremity: Normal inspection, Nontender, Normal color, Normal ROM, Normal temperature General lower extremity: Normal inspection, Nontender, Normal color, Normal ROM, Normal temperature, Normal weight bearing. No: Mitra's sign - Neurological Neuro grossly intact: Yes Cognition: Normal Orientation: AAOx4 Krys Coma Scale Eye Opening: Spontaneous Krys Coma Scale Verbal: Oriented Krys Coma Scale Motor: Obeys Commands Krys Coma Scale Total: 15 Speech: Normal Motor strength normal: LUE, RUE, LLE, RLE Sensory: Normal - Psychological Associated symptoms: Normal affect, Normal mood - Skin Skin Temperature: Warm Skin Moisture: Dry Skin Color: Normal Skin irregularity: Abscess Location of irregularity: Extremities - Right forearm Character of irregularity: negative: Erythematous Irregularity with: Tenderness, Other - Drainage. negative: Swelling, Warmth, Inflammation Course - Re-evaluation Re-evalutation: 12/11/19 15:45 Reinforced instructions concerning keeping wound clean dressed and take antibiotics until completed. Patient verbalized understanding and agreed agreement with treatment plan patient was discharged home - Vital Signs Vital signs: Temp Pulse Resp BP Pulse Ox 97.9 F 95 17 113/71 97 12/11/19 15:23 12/11/19 15:23 12/11/19 15:23 12/11/19 15:23 12/11/19 15:23 Discharge - Discharge Clinical Impression: Abscess re-check Condition: Stable Disposition: HOME, SELF-CARE Additional Instructions: ABSCESS: You have an abscess (boil). This a pus-forming infection, usually due to staph. Some boils may be left to drain on their own, but most require lancing. From the time the tender lump first appears, it may be three or four days before the abscess is ready to darien. Local heat and rest help at this stage of treatment. An antibiotic may prevent spread of the infection. Once the abscess is opened, packing may be placed into it. This is done so pus is not sealed inside by premature closure of the cavity. The packing will be removed at your follow-up visit or you may be advised to remove it yourself at home. Sometimes this packing must be replaced a few times during healing. The wound will heal with surprisingly little scar. Depending on the size and location of an abscess, healing can take one to four weeks. You may shower and wash the area around the incision site two or three ti mes a day. Antibiotics may be prescribed, but are usually not necessary after an abscess has been drained. If you develop fever, chills, worsening pain, or increasing swelling in the area, call the doctor or return immediately. MRSA CELLULITIS: You have an infection of your skin and underlying soft tissues called cellulitis. This is due to bacteria, which can enter through any break in the skin, or even through an irritated hair follicle. Untreated, cellulitis will usually worsen and may form an abscess which requires draining. Although many bacterial organisms can cause cellulitis and abscess formations, the most likely bacteria is Methicillin-Resistant Staph Aureus, or MRSA for short. Antibiotics are required. Usually, warm packs or warm soaks, and elevation of the infected area are recommended. You should start getting better within 24 to 36 hours. Most infections respond quickly to the right medication. Follow-up care is important, however, to check for abscess (boil) formation, unsuspected foreign body, or resistant infection. If you develop fever, chills, or if the area of infection is becoming rapidly more swollen or painful, call the doctor at once. CEPHALEXIN: The antibiotic you've been prescribed is a member of the cephalosporin class. This type of antibiotic covers a wide variety of infections, including those of the skin, lungs, and urinary tract. It's useful for staph infections. This antibiotic is slightly similar to the penicillin family. In rare cases, a person who is allergic to penicillin will also be allergic to this medication. If you have had a severe allergic reaction to penicillin, and have not taken this antibiotic since that time, notify your doctor. Antibiotics which cover many germs ("broad spectrum" antibiotics) are more likely to cause diarrhea or "yeast" infections. Women prone to vaginal yeast problems may suffer an attack after taking this antibiotic. In infants, oral thrush (white spots "stuck" on the cheek) or yeast diaper rash may result. See your doctor if these problems occur. Call at once if you develop itching, hives, shortness of breath, or lightheadedness. TRIMETHOPRIM-SULFA: You have been given a prescription for trimethoprim-sulfa (TMS, Septra, Bactrim). This is a combination antibiotic of the sulfa class, often used for urinary tract infections, middle ear infections, bronchitis, shigella intestinal infection, and Pneumocystis pneumonia. TMS is usually well-tolerated. Occasional side effects include nausea and decreased appetite. Septra is not recommended for infants less than two months of age. Do not take this medication if you have experienced severe side effects or allergy to sulfa medicine. You should stop this medicine at once and contact your physician if you develop any rash, joint pain, shortness of breath, bruising, or jaundice (yellow color in the skin), or if you develop any other new or unusual symptoms. In your area well with soap before doing your Epson salt soaks. I have provided you with a bottle of soap to use on your arm. Epsom Salt Soaks Soak the wound area in a container of warm epsom salt water. If you can't get the wound area into a bucket or jenkins, use a folded towel soaked in the epsom salt solution and apply to the area. Use clean hot tap water (about the temperature of a very warm bath), mixing in about one (1) teaspoon for every pint of water. Two gallon --> 16 teaspoons Epsom Salts One gallon --> 8 teaspoons Epsom Salts Two quarts --> 4 teaspoons Epsom Salts One quart --> 2 teaspoons Epsom Salts Soak the wound for about 20 minutes while gently moving it around in the water. Repeat this four (4) times a day. FOLLOW-UP CARE: Most simple abscesses will not require a follow up visit. If you had packing placed in the abscess, remove it as instructed by the physician. If you have been referred to a physician for follow-up care, call the physicians office for an appointment as you were instructed or within the next two days. If you experience worsening or a significant change in your symptoms, return to the Emergency Department at any time for re-evaluation. Referrals: [facility] [Provider Group] - Follow up as needed [facility] [Provider Group] - Follow up as needed [facility] [Provider Group] - Follow up as needed [facility] [Provider Group] - Follow up as needed
== END 2019-12-11 15:44 | disposition home or self-care (01) ==
LOC: ER 15:19
DX: L02.413 Cutaneous abscess of right upper limb (principal)
CPT/HCPCS: 99282

== ENCOUNTER 2020-03-10 22:19 | Emergency (ER) | payer SELFPAY ==
[2020-03-11 02:04] VITALS: BP 110/73
--- NOTE | 2020-03-11 05:12 | ER Document Report ---
Entered by ADELAIDA HODGES SCRIBE 03/11/20 0153 Acting as scribe for:ABBY SHARP DO ED Extremity Problem, Lower - General Chief Complaint: Leg Pain Stated Complaint: PAIN IN BOTH LEGS Time Seen by Provider: 03/11/20 01:46 Mode of Arrival: Ambulatory Information source: Patient Notes: This 29 year old female patient presents to the emergency department today with complaints of bilateral calf pain. Patient reports that it "feels like they are going to explode, like a blood clot". Patient denies a personal or family history of DVT/PE. Patient denies any recent immobilization, usage of hormone therapy, or recent long distance travel. TRAVEL OUTSIDE OF THE [place] 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 Surgical Hx: Negative - Immunizations Immunizations up to date: Yes Hx Diphtheria, Pertussis, Tetanus Vaccination: Yes Review of Systems - Review of Systems Constitutional: No symptoms reported EENT: No symptoms reported Cardiovascular: No symptoms reported Respiratory: No symptoms reported Gastrointestinal: No symptoms reported Genitourinary: No symptoms reported Female Genitourinary: No symptoms reported Musculoskeletal: See HPI, Other - bilateral calf pain Skin: No symptoms reported Hematologic/Lymphatic: No symptoms reported Neurological/Psychological: No symptoms reported -: Yes All other systems reviewed and negative Physical Exam - Vital signs Vitals: Temp Pulse Resp BP Pulse Ox 98.5 F 85 16 95/56 L 100 03/10/20 22:20 03/10/20 22:20 03/10/20 22:20 03/10/20 22:20 03/10/20 22:20 - Notes Notes: Physical Exam: General: Alert, appears well. HEENT: Normocephalic. Atraumatic. PERRL. Extraocular movements intact. Oropharynx clear. Neck: Supple. Non-tender. Respiratory: No respiratory distress. Clear and equal breath sounds bilaterally. Cardiovascular: Regular rate and rhythm. Abdominal: Normal Inspection. Non-tender. No distension. Normal Bowel Sounds. Back: No gross abnormalities. Extremities: Moves all four extremities. Upper extremities: Normal inspection. Normal ROM. Lower extremities: No homans sign. Calves are soft but tender with palpation bilaterally. No edema. Normal ROM. Neurological: Normal cognition. AAOx4. Normal speech. Psychological: Normal affect. Normal Mood. Skin: Warm. Dry. Normal color. Course - Re-evaluation Re-evalutation: 03/11/20 Patient comes in complaining of bilateral calf pain and concern for DVTs. P atient denies . She does not take control. She is a non-smoker. 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 No history of blood clots that she knows of in legs or lungs. No Doppler available at this time. Patient given a prescription and is to call radiology in the morning to schedule. Return if further concerns or symptoms. No difficulty breathing, cough, fever, respiratory distress. Stable for discharge. Follow-up with PMD. Understands and agrees with plan. - Vital Signs Vital signs: Temp Pulse Resp BP Pulse Ox 98.1 F 71 18 110/73 97 03/11/20 01:58 03/11/20 01:58 03/11/20 01:58 03/11/20 01:58 03/11/20 01:58 Discharge - Discharge Clinical Impression: Bilateral calf pain Condition: Stable Disposition: HOME, SELF-CARE Instructions: Leg Pain Nonspecific ([facility]) Forms: Follow-Up Radiology Testing I personally performed the services described in the documentation, reviewed and edited the documentation which was dictated to the scribe in my presence, and it accurately records my words and actions.
== END 2020-03-11 02:02 | disposition home or self-care (01) ==
LOC: ER 22:19
DX: M79.662 Pain in left lower leg (principal); M79.661 Pain in right lower leg; M79.604 Pain in right leg; M79.605 Pain in left leg; Z87.891 Personal history of nicotine dependence; I10 Essential (primary) hypertension
CPT/HCPCS: 99283

== ENCOUNTER → 2020-03-12 | Outpatient (CLI) | payer SELFPAY ==
--- NOTE | 2020-03-12 16:15 | RADIOLOGY REPORT (SQ) ---
EXAM DESCRIPTION: VENOUS BILATERAL LOWER IMAGES COMPLETED DATE/TIME: 03/12/2020 3:58 pm REASON FOR STUDY: BLE PAIN COMPARISON: None. TECHNIQUE: Dynamic and static starr scale and color images acquired of both lower extremity venous sy stems. Selected spectral images acquired with additional compression and augmentation maneuvers. Imag es stored on PACS. LIMITATIONS: None. FINDINGS: RIGHT LEG COMMON FEMORAL AND FEMORAL: Normal phasicity, compression and augmentation. No visualized echogenic m aterial on starr scale. No defects on color images. POPLITEAL: Normal compression and augmentation. No visualized echogenic material on starr scale. No de fects on color images. CALF VESSELS: Normal compression and augmentation. No visualized echogenic material on starr scale. No defects on color image. GSV AND SSV: Normal compression. No visualized echogenic material on starr scale. No defects on color images. ANY DEEP VENOUS INSUFFICIENCY: Not evaluated. ANY EVIDENCE OF POPLITEAL CYST: No. OTHER: No other significant finding. LEFT LEG COMMON FEMORAL AND FEMORAL: Normal phasicity, compression and augmentation. No visualized echogenic m aterial on starr scale. No defects on color images. POPLITEAL: Normal compression and augmentation. No visualized echogenic material on starr scale. No de fects on color images. CALF VESSELS: Normal compression and augmentation. No visualized echogenic material on starr scale. No defects on color images. GSV AND SSV: Normal compression. No visualized echogenic material on starr scale. No defects on color images. ANY DEEP VENOUS INSUFFICIENCY: Not evaluated. ANY EVIDENCE POPLITEAL CYST: No. OTHER: No other significant finding. IMPRESSION: NO EVIDENCE DVT OR SVT IN EITHER LEG. TECHNICAL DOCUMENTATION: JOB ID: [id number] [address]- All Rights Reserved Reading location - IP/workstation name: [email or web address]
== END ==
LOC: SP 09:17
DX: M79.605 Pain in left leg (principal); M79.604 Pain in right leg
CPT/HCPCS: 93970